=== PATIENT | male | born 1995 | race Caucasian/White ===

== ENCOUNTER 2016-04-08 22:57 | Emergency (ER) | payer SELFPAY ==
[~2016-04-08 22:57] MED LIST: FLUO20CA38; METH36TA6
== END 2016-04-08 23:21 | disposition left against medical advice (07) ==
LOC: E/R 22:57
DX: Z53.21 Procedure and treatment not carried out due to patient leaving prior to being seen by health care provider (principal)

== ENCOUNTER 2016-05-04 22:18 | Inpatient (IN) | payer OTHER ==
[~2016-05-04] VITALS: Ht 170.2 cm; Wt 84.6 kg
[2016-05-04] MEDS ORDERED: SOD CHLORIDE 0.9% 1,000 ML IV STA (22:21)
[2016-05-04] MEDS ORDERED: SUCCINYLCHOLINE CHLORIDE 100 MG/5 ML SYG IV STA (22:21)
[2016-05-04] MEDS ORDERED: PROPOFOL 100 ML IV STA (22:21)
[2016-05-04] MEDS ORDERED: ETOMIDATE 20 MG INJ IV ONE ×2 (22:30→23:00)
[2016-05-04 22:35] VITALS: Ht 170.2 cm; Wt 84.6 kg
[2016-05-04] MEDS ORDERED: OLAN15TA3 PO (22:50)
[2016-05-04 23:17] LABS: ADD SCAN DIFF NO
--- NOTE | 2016-05-04 23:19 | RADRPT ---
PROCEDURE: XR Chest. CLINICAL INDICATION: The patient is status post intubation. TECHNIQUE: Single frontal view of the chest was obtained COMPARISON: None FINDINGS: Endotracheal intubation is seen with tip about 4 cm above the orquidea. The heart and mediastinum are within normal limits. Mild left lung base atelectasis versus airspace disease. There is no pleural effusion or pneumothorax. IMPRESSION: 1. Endotracheal intubation is seen with tip about 4 cm above the orquidea. 2. Mild left lung base atelectasis versus airspace disease. RPTAT: [facility] Physician Trudy Date Time Electronically viewed and signed by Physician Trudy on 05/04/2016 23:19 RS/
[2016-05-04 23:20] LABS: BASOPHILS % 0.4 % (0.0-2.0); EOSINOPHILS % 0.1 % (0.0-7.0); HEMATOCRIT 45.4 % (42.0-52.0); HEMOGLOBIN 15.8 g/dl (14.0-18.0); LYMPHOCYTES # 2.8 10^3/ul (0.8-2.9); MEAN CORPUSCULAR HEMOGLOBIN 30.6 pg (29.0-33.0); MEAN CORPUSCULAR HGB CONC 34.8 g/dl (32.0-37.0); MEAN CORPUSCULAR VOLUME 87.8 fl (82.0-101.0); MEAN PLATELET VOLUME 11.5 fl (7.4-10.4); MONOCYTE # 0.8 10^3/ul (0.3-0.9); NEUTROPHIL # 6.4 10^3/ul (1.6-7.5); PLATELET COUNT 307 10^3/UL (140-415); RED BLOOD COUNT 5.17 10^6/ul (4.70-6.10); RED CELL DISTRIBUTION WIDTH 12.9 % (11.5-14.5); WHITE BLOOD COUNT 10.1 10^3/ul (4.8-10.8)
[2016-05-04 23:28] LABS: ALBUMIN 4.4 g/dl (3.3-4.9)
[2016-05-04 23:29] LABS: CHLORIDE 106 mmol/L (97-110); POTASSIUM 3.6 mmol/L (3.5-5.1); SODIUM 144 mmol/L (135-144)
[2016-05-04 23:31] LABS: ALBUMIN/GLOBULIN RATIO 1.41; ALKALINE PHOSPHATASE 90 IU/L (42-121); ANION GAP 21 (8-16); ASPARTATE AMINO TRANSFERASE 38 IU/L (15-46); BILIRUBIN,INDIRECT 0.2 mg/dl (0-1.1); BILIRUBIN,TOTAL 0.2 mg/dl (0.2-1.3); BLOOD UREA NITROGEN 12 mg/dl (7-20); CARBON DIOXIDE 21 mmol/L (21-31); CREATININE 1.32 mg/dl (0.61-1.24); TOTAL PROTEIN 7.5 g/dl (6.1-8.1)
[2016-05-04] MEDS: MIDAZOLAM (DRIP) 50 mg/50 mL 50 ML IV SCH (23:31)
[2016-05-04 23:32] LABS: ALANINE AMINOTRANSFERASE 34 IU/L (13-69); CALCIUM 9.9 mg/dl (8.4-10.2); GLUCOSE 110 mg/dl (70-220)
[2016-05-04 23:34] LABS: ACETAMINOPHEN < 10.0 ug/ml (10.0-30.0); ETHANOL < 10.0 mg/dl; SALICYLATE < 1.0 mg/dl (5.0-30.0)
[2016-05-04 23:47] LABS: URINE BILIRUBIN (Dip) NEGATIVE (NEGATIVE); URINE BLOOD (Dip) NEGATIVE (NEGATIVE); URINE COLOR YELLOW (YELLOW); URINE GLUCOSE (Dip) NEGATIVE (NEGATIVE); URINE KETONES (Dip) TRACE (NEGATIVE); URINE LEUKOCYTE ESTERASE (Dip) NEGATIVE (NEGATIVE); URINE NITRITE (Dip) NEGATIVE (NEGATIVE); URINE UROBILINOGEN (Dip) 0.2 E.U./dL (0.1-1.0)
[2016-05-04 23:59] LABS: ADD UMIC NO; URINE TOTAL PROTEIN (Dip) NEGATIVE (NEGATIVE)
[2016-05-05] VITALS (73 sets, daily range): BP systolic 92–161; BP diastolic 47–84; PULSE 53–257; RESP 15–22; TEMP 98.7
[2016-05-05 00:04] LABS: BENZODIAZEPINES Positive (NEGATIVE)
[2016-05-05 00:10] LABS: BARBITURATES Negative (NEGATIVE); CANNABINOIDS Positive (NEGATIVE); COCAINE Positive (NEGATIVE); OPIATES Negative (NEGATIVE)
[2016-05-05] MEDS ORDERED: HALOPERIDOL 5 MG INJ IV ONE (00:30)
[2016-05-05] MEDS ORDERED: FENTAnyl (DRIP) 1000 mcg/100mL 100 ML IV ONE (01:00)
--- NOTE | 2016-05-05 01:28 | ERA ---
ER Documentation Chief Complaint Date/Time DATE: 05/05/16 TIME: 01:26 Chief Complaint BIBA RA90, agitation,homicidal HPI This is a 20 male brought in by police and rescue 90 for being acutely agitated and homicidal and suicidal. Patient is severely demented. Is not providing relevant history, but according to paramedics the patient was upset because mother left the house. He was given Versed on route with no discernible effect. Given Haldol immediately upon arrival here with no discernible effect. Decision was made to intubate the patient for both patient and staff safety ROS All systems reviewed and are negative except as per history of present illness. Medications Home Meds Reported Medications Olanzapine* (Zyprexa*) 15 Mg Tablet, 15 MG PO DAILY, #30 TAB 05/04/16 Discontinued Reported Medications Fluoxetine Hcl* (Prozac*) 20 Mg Capsule 08/06/09 Methylphenidate Hcl* (Concerta*) 36 Mg/Bottle Tab.osm.24 08/06/09 Allergies Allergies: Coded Allergies: No Known Drug Allergies (Verified Allergy, Mild, 05/04/16) PMhx/Soc History of Surgery: Yes (BEHIND EAR SURGERY???) Anesthesia Reaction: No Hx Neurological Disorder: No Hx Respiratory Disorders: No Hx Cardiac Disorders: No Hx Psychiatric Problems: Yes (DEPRESSION; MOOD DISORDER) Hx Miscellaneous Medical Probl: No Hx Alcohol Use: No Hx Substance Use: No Hx Tobacco Use: No Smoking Status: Never smoker Physical Exam Vitals Vital Signs Date Time Temp Pulse Resp B/P Pulse Ox O2 Delivery O2 Flow Rate FiO2 05/04/16 23:56 98.2 98 19 131/84 100 Mechanical Ventilator 05/04/16 22:35 98.8 122 19 190/123 100 Physical Exam Const: [] Head: Atraumatic Eyes: Normal Conjunctiva ENT: Normal External Ears, Nose and Mouth. Neck: Full range of motion..~ No meningismus. Resp: Clear to auscultation bilaterally Cardio: Regular rate and rhythm, no murmurs Abd: Soft, non tender, non distended. Normal bowel sounds Skin: No petechiae or rashes Back: No midline or flank tenderness Ext: No cyanosis, or edema Neur: Awake and alert Psych: Normal Mood and Affect Result Diagram: 05/04/16 2305 05/04/16 230 Results 24 hrs Laboratory Tests Test 05/04/16 23:04 05/04/16 23:05 Urine Amphetamines Screen Negative Urine Barbiturates Negative Urine Benzodiazepines Screen Positive Urine Bilirubin NEGATIVE Urine Cannabinoids Positive Urine Clarity CLEAR Urine Cocaine Screen Positive Urine Color YELLOW Urine Glucose NEGATIVE% Urine Hemoglobin NEGATIVE Urine Ketones TRACE Urine Leukocyte Esterase NEGATIVE Urine Nitrite NEGATIVE Urine Opiates Screen Negative Urine Specific [place] >=1.030 Urine Total Protein NEGATIVE Urine Urobilinogen 0.2 E.U./dL Urine pH 6.0 Acetaminophen Level < 10.0ug/ml Alanine Aminotransferase (ALT/SGPT) 34IU/L Albumin 4.4g/dl Albumin/Globulin Ratio 1.41 Alkaline Phosphatase 90IU/L Anion Gap 21 Aspartate Amino Transf (AST/SGOT) 38IU/L Basophils # 0.010^3/ul Basophils % 0.4% Blood Urea Nitrogen 12mg/dl Calcium Level 9.9mg/dl Carbon Dioxide Level 21mmol/L Chloride Level 106mmol/L Creatinine 1.32mg/dl Direct Bilirubin 0.00mg/dl Eosinophils # 0.010^3/ul Eosinophils % 0.1% Ethyl Alcohol Level < 10.0mg/dl Globulin 3.10g/dl Glucose Level 110mg/dl Hematocrit 45.4% Hemoglobin 15.8g/dl Indirect Bilirubin 0.2mg/dl Lymphocytes # 2.810^3/ul Lymphocytes % 28.0% Mean Corpuscular Hemoglobin 30.6pg Mean Corpuscular Hemoglobin Concent 34.8g/dl Mean Corpuscular Volume 87.8fl Mean Platelet Volume 11.5fl Monocytes # 0.810^3/ul Monocytes % 8.0% Neutrophils # 6.410^3/ul Neutrophils % 63.0% Nucleated Red Blood Cells # 0.010^3/ul Nucleated Red Blood Cells % 0.0/100WBC Platelet Count 58252^3/UL Potassium Level 3.6mmol/L Red Blood Count 5.1710^6/ul Red Cell Distribution Width 12.9% Salicylates Level < 1.0mg/dl Sodium Level 144mmol/L Total Bilirubin 0.2mg/dl Total Protein 7.5g/dl White Blood Count 10.110^3/ul Current Medications Medications (Trade) Dose Ordered Sig/Licha Route PRN Reason Start Time Stop Time Status Last Admin Dose Admin Etomidate 20 mg 20 mg ONCE ONCE IV 05/04/16 22:30 05/04/16 22:31 DC Sodium Chloride (NS) 1,000 ml @ 1,000 mls/hr Q1H STAT IV 05/04/16 22:21 05/04/16 23:20 DC 05/04/16 23:09 Succinylcholine Chloride 100 mg 100 mg ONCE STAT IV 05/04/16 22:21 05/04/16 22:24 DC Propofol (Diprivan) 100 ml @ 0 mls/hr ONCE STAT IV 05/04/16 22:21 05/04/16 22:24 DC 05/04/16 23:08 Etomidate 20 mg 20 mg ONCE ONCE IV 05/04/16 23:00 05/04/16 23:01 DC Midazolam HCl (Versed) 50 ml @ 1 mls/hr TITRATE IV 05/04/16 23:30 05/04/16 23:31 Haloperidol 5 mg 5 mg ONCE ONCE IV 05/05/16 00:30 05/05/16 00:31 DC 05/05/16 00:13 Fentanyl (Sublimaze) 100 ml @ 2.5 mls/hr TITRATE ONCE IV 05/05/16 01:00 05/06/16 16:59 Procedures/MDM EKG: Rate/Rhythm: [Normal Sinus Rhythm] QRS, ST, T-waves: [No changes consistent w/ acute ischemia] Impression: [No evidence of ischemia or arrhythmia] Chest X-ray 1V Interpreted by me: Soft Tissue: No acute abnormalities Bones: No acute abnormalities Mediastinum/Cardiac Silhouette/Lungs: ET tube in good position Medical decision-makin-year-old schizophrenic male who has polysubstance abuse as well with combative behavior and threatening behavior toward staff. Patient is currently intubated and sedated. He has been difficult for sedation as he is on both propofol drip and Versed drip. Patient will have fentanyl drip added for triple sedation protocol. Patient will be admitted to Dr. Lopez who is on-call for the patient's IPA Critical Care: Time: 45 minutes Treatments/Evaluations: Close monitoring and treatment of unstable vital signs, cardiorespiratory, and neurologic status, while maintaining tight balance of fluid, respiratory, and cardiac interventions. Departure Diagnosis: Primary Impression: Agitation Additional Impressions: Homicidal ideation Combative behavior Polysubstance abuse Condition: Critical PEMA MOSS May 05, 2016 01:27
--- NOTE | 2016-05-05 01:29 | QN ---
Documentation Comment H&P dict a/p 1. psych: agitation and violent behavior 2. sedation to control behavior 3. ventilator in light #2 4. proph; protonix and lovenox 5. cocaine NAVA CARLOS MD May 05, 2016 01:29
[2016-05-05] MEDS ORDERED: PROPOFOL 100 ML IV ONE (01:30)
[2016-05-05] MEDS ORDERED: VANCOMYCIN IV PER PHARMACY XX SCH (01:30)
[2016-05-05] MEDS ORDERED: MIDAZOLAM (DRIP) 50 mg/50 mL 50 ML IV SCH (01:30)
[2016-05-05] MEDS ORDERED: ACETAMINOPHEN 650MG/20.3ML CUP PO PRN (01:30)
[2016-05-05] MEDS: HALOPERIDOL 5 MG INJ IV SCH ×2 (01:55→13:30)
[2016-05-05] MEDS: MIDAZOLAM (DRIP) 50 mg/50 mL 50 ML IV SCH ×3 (02:52→15:43)
[2016-05-05] MEDS ORDERED: VANCOMYCIN 1 GM in NS 250 ML IVPB SCH (03:00)
[2016-05-05] MEDS: D5W-0.45 NACL + KCL 20 MEQ 1,000 ML IV SCH ×2 (03:00→09:17)
[2016-05-05] MEDS: PIPER-TAZO 3.375 GM IV (PMX) 100 ML IVPB SCH ×3 (03:02→17:39)
[2016-05-05 03:21] LABS: AADO2 Arterial 254.8 mmHg (7.0-24.0); Allen Test ACCEPTAB; Arterial Base Excess -2.4 mmol/L (-3.0-3); Arterial COHb 0.2 % (0.0-3.0); Arterial Fraction of Oxyhgb 98.5 % (93.0-99.0); Arterial HCO3 20.9 mmol/L (22.0-26.0); Arterial MetHb 0.6 % (0.0-1.5); Arterial Total Hemglobin 15.1 g/dl (12.0-18.0); MODE VENT - AC
[2016-05-05] MEDS ORDERED: ALBUTEROL/IPRATROPIUM (NEB) 3 ML AMP NEB SCH (05:00)
[2016-05-05] MEDS: ALBUTEROL HFA 8 GM INHALER INH SCH ×5 (05:00→21:14)
[2016-05-05] MEDS: IPRATROPIUM (HFA) 12.9 GM INHALER INH SCH ×5 (05:00→21:14)
[2016-05-05] MEDS: PANTOPRAZOLE 40 MG INJ IV SCH (05:48)
[2016-05-05] MEDS: PROPOFOL 100 ML IV SCH ×4 (06:03→21:58)
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
[2016-05-05] MEDS ORDERED: FENTAnyl (DRIP) 1000 mcg/100mL 100 ML IV SCH (09:00)
--- NOTE | 2016-05-05 09:43 | CONS ---
Date/Time of Note Date/Time of Note DATE: 05/05/16 TIME: 09:38 Assessment/Plan Assessment/Plan Additional Assessment/Plan Ventilator settings; AC of 16, tidal volume 500, PEEP of 5, 40% FiO2. Chest x-ray was reviewed from yesterday which is totally clear. Next Assessment recommendations; 1. Patient admitted for multidrug overdose causing respiratory failure. 2. History of depression. 3. Currently no evidence of any infective process. Continue current supportive care. Give the patient a sedation vacation tomorrow morning to assess mental status as that would determine whether he is able to be weaned off from ventilator or not. Consultation Date/Type/Reason Admit Date/Time May 05, 2016 at 01:27 Date of Consultation: May 05, 2016 Type of Consultation: Pulmonary/critical care Hx of Present Illness Pulmonary critical care consultation is requested for respiratory failure. Next History presenting; patient is a 20-year-old male who was brought into the hospital yesterday after he was found agitated on the street. Upon evaluation patient was discovered to have multidrug overdose and he was intubated for airway protection and transferred to ICU. By the time I saw the patient the patient is orally intubated and sedated. History was obtained from medical records. Past medical history; is evidently for depression. No other history available apparently none. Next Medications; reviewed. Allergies; no known drug allergies reported. Social history; based upon drug screening patient is a drug user. Family history; not available. Occupational history; not available. Review of systems; unable to be obtained at this time. General exam; young male, or intubated, sedated. Currently in no distress. HEENT exam is; supple neck, no JVD. No lymphadenopathy. Midline trachea. No thyromegaly. Patient is orally intubated. Pupils are small bilaterally. No neck masses. No thyromegaly. Chest examination; clear to auscultation bilaterally. S1-S2 audible, no murmurs. Regular rhythm. Abdomen examination; soft, nondistended. No organomegaly. Bowel is audible. Extremity examination; no peripheral edema. +1+ bilaterally. COPY DIRECTOR examination; patient is sedated. Social History Smoking Status: Never smoker Exam/Review of Systems Vital Signs Vitals Vital Signs Date Time Temp Pulse Resp B/P Pulse Ox O2 Delivery O2 Flow Rate FiO2 05/05/16 08:00 67 05/05/16 06:30 16 124/67 100 05/05/16 06:00 Mechanical Ventilator 05/05/16 05:25 40 05/05/16 04:00 98.5 Intake and Output 05/04/16 05/04/16 05/05/16 15:00 23:00 07:00 Intake Total 1612 ml Output Total 140 ml Balance 1472 ml Results Result Diagram: 05/04/16 2305 05/04/16 2305 Results 24 hrs Laboratory Tests Test 05/04/16 22:21 05/04/16 23:04 05/04/16 23:05 Arterial Blood HCO3 20.9 L Arterial Blood Base Excess -2.4 Arterial Blood Oxygen Saturation 99.3 H Colton Test ACCEPTAB Arterial Blood Gas Puncture Site Right Radial Arterial Blood Carboxyhemoglobin 0.2 Arterial Blood Date Drawn 05/05/2016 3:10:53 AM Arterial Blood Methemoglobin 0.6 Arterial Blood pCO2 (Temp correct) 32.0 L Arterial Blood pH (Temp corrected) 7.432 Arterial Blood pO2 (Temp corrected) 426.2 H Blood Gas A-a O2 Differential 254.8 H Blood Gas Actual Respiration Rate 16 Blood Gas Inspiratory Pressure 19.0 Blood Gas Modality VENT - AC Blood Gas Notified Time 05/05/2016 3:21:44 AM Blood Gas Notified Whom KM Blood Gas Respiration Rate 16.0 Blood Gas Specimen Source Blood arterial Blood Gas Temperature 37.0 Blood Gas Tidal Volume 500.0 FiO2 100.0 Oxyhemoglobin Percent 98.5 Total Hemoglobin 15.1 Urine Amphetamines Screen Negative Urine Barbiturates Negative Urine Benzodiazepines Screen Positive Urine Bilirubin NEGATIVE Urine Cannabinoids Positive Urine Clarity CLEAR Urine Cocaine Screen Positive Urine Color YELLOW Urine Glucose NEGATIVE Urine Hemoglobin NEGATIVE Urine Ketones TRACE Urine Leukocyte Esterase NEGATIVE Urine Nitrite NEGATIVE Urine Opiates Screen Negative Urine Specific [place] >=1.030 H Urine Total Protein NEGATIVE Urine Urobilinogen 0.2 E.U./dL Urine pH 6.0 Acetaminophen Level < 10.0 L Alanine Aminotransferase (ALT/SGPT) 34 Albumin 4.4 Albumin/Globulin Ratio 1.41 Alkaline Phosphatase 90 Anion Gap 21 H Aspartate Amino Transf (AST/SGOT) 38 Basophils # 0.0 Basophils % 0.4 Blood Urea Nitrogen 12 Calcium Level 9.9 Carbon Dioxide Level 21 Chloride Level 106 Creatinine 1.32 H Direct Bilirubin 0.00 Eosinophils # 0.0 Eosinophils % 0.1 Ethyl Alcohol Level < 10.0 Globulin 3.10 Glucose Level 110 Hematocrit 45.4 Hemoglobin 15.8 Indirect Bilirubin 0.2 Lymphocytes # 2.8 Lymphocytes % 28.0 Mean Corpuscular Hemoglobin 30.6 Mean Corpuscular Hemoglobin Concent 34.8 Mean Corpuscular Volume 87.8 Mean Platelet Volume 11.5 H Monocytes # 0.8 Monocytes % 8.0 Neutrophils # 6.4 Neutrophils % 63.0 Nucleated Red Blood Cells # 0.0 Nucleated Red Blood Cells % 0.0 Platelet Count 307 Potassium Level 3.6 Red Blood Count 5.17 Red Cell Distribution Width 12.9 Salicylates Level < 1.0 L Sodium Level 144 Total Bilirubin 0.2 Total Protein 7.5 Troponin I < 0.012 White Blood Count 10.1 Medications Medications Current Medications Midazolam HCl 50 ml @ 1 mls/hr TITRATE IV Last administered on 05/05/16 08:22 ; Admin Dose 10 MLS/HR; Start 05/04/16 at 23:30 Fentanyl 100 ml @ 2.5 mls/hr TITRATE ONCE IV Last administered on 05/05/16 01:25; Admin Dose 2.5 MLS/HR; Start 05/05/16 at 01:00; Stop 05/06/16 at 16:59 Potassium Chloride/Dextrose/ Sod Cl (D5-1/2ns + KCl 20 Meq) 1,000 ml @ 125 mls/ hr Q8H IV Last administered on 05/05/16 03:00; Admin Dose 125 MLS/HR; Start at 01:17 Ondansetron HCl (Zofran Inj) 4 mg Q6H PRN IV NAUSEA AND/OR VOMITING; Start at 01:30 Acetaminophen (Tylenol Liquid) 650 mg Q6H PRN PO PAIN LEVEL 1-3 OR FEVER; Start 05/05/16 at 01:30 Pantoprazole (Protonix Iv) 40 mg DAILY@06 IV Last administered on 05/05/16 05: 48; Admin Dose 40 MG; Start 05/05/16 at 06:00 Enoxaparin Sodium (Lovenox) 40 mg DAILY SC ; Start 05/05/16 at 09:00 Haloperidol 5 mg 5 mg Q12H IV Last administered on 05/05/16 01:55; Admin Dose 5 MG; Start 05/05/16 at 01:30 Midazolam HCl 50 ml @ 1 mls/hr TITRATE IV ; Start 05/05/16 at 01:30 Piperacillin Sod/ Tazobactam Sod 100 ml @ 200 mls/hr Q8H IVPB Last administered on 05/05/16 03:02; Admin Dose 200 MLS/HR; Start 05/05/16 at 01:30 Vancomycin HCl 250 ml @ 125 mls/hr Q12H IVPB Last administered on 05/05/16 03 :53; Admin Dose 125 MLS/HR; Start 05/05/16 at 03:00 Propofol 100 ml @ 2.379 mls/ hr Q12H IV Last administered on 05/05/16 08:29; Admin Dose 47.58 MLS/HR; Start 05/05/16 at 06:00 Fentanyl (Sublimaze) 100 ml @ 2.5 mls/hr TITRATE IV Last administered on 08:51; Admin Dose 10 MLS/HR; Start 05/05/16 at 09:00 ROBBY OCONNOR May 05, 2016 09:43
--- NOTE | 2016-05-05 10:04 | PN ---
Date/Time of Note Date/Time of Note DATE: 05/05/16 TIME: 09:47 Assessment/Plan VTE Prophylaxis VTE Prophylaxis Intervention: LMWH Lines/Catheters IV Catheter Type (from Nrsg): Peripheral IV Urinary Cath still in place: Yes Reason Cath still needed: other (indicate) (intubated ) Assessment/Plan Assessment/Plan 20 yo male with: 1. Delirium, Agitation with possibly underlying Schizophrenia or some Psychotic disorder, non-compliance with antipsychotic medications and also Cocaine use Intubated and sedated on Fentanyl, Versed and Propofol Wean off fentanyl first then propofol and versed PET team/telepsych consult once awake customer services coordinator consult 2. Acute respiratory failure and intubated for airway protection also. Concerns for aspiration PNA as patient was vomiting during intubation Continue Jeramy d/c Chencho for now CXR in AM Prophylaxis: Protonix for GI ppx and Lovenox for DVT ppx. Disposition: Weaning down sedation and hopefully to extubate soon Subjective 24 Hr Interval Summary Free Text/Dictation Patient intubated and sedated Hemodynamically stable and stable on Vent Exam/Review of Systems Vital Signs Vitals Vital Signs Date Time Temp Pulse Resp B/P Pulse Ox O2 Delivery O2 Flow Rate FiO2 05/05/16 08:00 67 05/05/16 06:30 16 124/67 100 05/05/16 06:00 Mechanical Ventilator 05/05/16 05:25 40 05/05/16 04:00 98.5 Intake and Output 05/04/16 05/04/16 05/05/16 14:59 22:59 06:59 Intake Total 1612 ml Output Total 140 ml Balance 1472 ml Exam Constitutional: other (sedated and intubated ), well developed Respiratory: clear to auscultation, normal air movement Cardiovascular: nl pulses, regular rate and rhythm Gastrointestinal: non-tender, soft Musculoskeletal: nl extremities to inspection Extremities: normal pulses, other (no edema, clubbing or cyanosis ) Neurological: other (sedated and intubated ) Results Result Diagram: 05/04/16 2305 05/04/16 2305 Results 24 hrs Laboratory Tests Test 05/04/16 22:21 05/04/16 23:04 05/04/16 23:05 Arterial Blood HCO3 20.9 L Arterial Blood Base Excess -2.4 Arterial Blood Oxygen Saturation 99.3 H Colton Test ACCEPTAB Arterial Blood Gas Puncture Site Right Radial Arterial Blood Carboxyhemoglobin 0.2 Arterial Blood Date Drawn 05/05/2016 3:10:53 AM Arterial Blood Methemoglobin 0.6 Arterial Blood pCO2 (Temp correct) 32.0 L Arterial Blood pH (Temp corrected) 7.432 Arterial Blood pO2 (Temp corrected) 426.2 H Blood Gas A-a O2 Differential 254.8 H Blood Gas Actual Respiration Rate 16 Blood Gas Inspiratory Pressure 19.0 Blood Gas Modality VENT - AC Blood Gas Notified Time 05/05/2016 3:21:44 AM Blood Gas Notified Whom KM Blood Gas Respiration Rate 16.0 Blood Gas Specimen Source Blood arterial Blood Gas Temperature 37.0 Blood Gas Tidal Volume 500.0 FiO2 100.0 Oxyhemoglobin Percent 98.5 Total Hemoglobin 15.1 Urine Amphetamines Screen Negative Urine Barbiturates Negative Urine Benzodiazepines Screen Positive Urine Bilirubin NEGATIVE Urine Cannabinoids Positive Urine Clarity CLEAR Urine Cocaine Screen Positive Urine Color YELLOW Urine Glucose NEGATIVE Urine Hemoglobin NEGATIVE Urine Ketones TRACE Urine Leukocyte Esterase NEGATIVE Urine Nitrite NEGATIVE Urine Opiates Screen Negative Urine Specific [place] >=1.030 H Urine Total Protein NEGATIVE Urine Urobilinogen 0.2 E.U./dL Urine pH 6.0 Acetaminophen Level < 10.0 L Alanine Aminotransferase (ALT/SGPT) 34 Albumin 4.4 Albumin/Globulin Ratio 1.41 Alkaline Phosphatase 90 Anion Gap 21 H Aspartate Amino Transf (AST/SGOT) 38 Basophils # 0.0 Basophils % 0.4 Blood Urea Nitrogen 12 Calcium Level 9.9 Carbon Dioxide Level 21 Chloride Level 106 Creatinine 1.32 H Direct Bilirubin 0.00 Eosinophils # 0.0 Eosinophils % 0.1 Ethyl Alcohol Level < 10.0 Globulin 3.10 Glucose Level 110 Hematocrit 45.4 Hemoglobin 15.8 Indirect Bilirubin 0.2 Lymphocytes # 2.8 Lymphocytes % 28.0 Mean Corpuscular Hemoglobin 30.6 Mean Corpuscular Hemoglobin Concent 34.8 Mean Corpuscular Volume 87.8 Mean Platelet Volume 11.5 H Monocytes # 0.8 Monocytes % 8.0 Neutrophils # 6.4 Neutrophils % 63.0 Nucleated Red Blood Cells # 0.0 Nucleated Red Blood Cells % 0.0 Platelet Count 307 Potassium Level 3.6 Red Blood Count 5.17 Red Cell Distribution Width 12.9 Salicylates Level < 1.0 L Sodium Level 144 Total Bilirubin 0.2 Total Protein 7.5 Troponin I < 0.012 White Blood Count 10.1 Medications Medications Current Medications Midazolam HCl 50 ml @ 1 mls/hr TITRATE IV Last administered on 05/05/16 08:22 ; Admin Dose 10 MLS/HR; Start 05/04/16 at 23:30 Fentanyl 100 ml @ 2.5 mls/hr TITRATE ONCE IV Last administered on 05/05/16 01:25; Admin Dose 2.5 MLS/HR; Start 05/05/16 at 01:00; Stop 05/06/16 at 16:59 Potassium Chloride/Dextrose/ Sod Cl (D5-1/2ns + KCl 20 Meq) 1,000 ml @ 125 mls/ hr Q8H IV Last administered on 05/05/16 03:00; Admin Dose 125 MLS/HR; Start at 01:17 Ondansetron HCl (Zofran Inj) 4 mg Q6H PRN IV NAUSEA AND/OR VOMITING; Start at 01:30 Acetaminophen (Tylenol Liquid) 650 mg Q6H PRN PO PAIN LEVEL 1-3 OR FEVER; Start 05/05/16 at 01:30 Pantoprazole (Protonix Iv) 40 mg DAILY@06 IV Last administered on 05/05/16 05: 48; Admin Dose 40 MG; Start 05/05/16 at 06:00 Enoxaparin Sodium (Lovenox) 40 mg DAILY SC ; Start 05/05/16 at 09:00 Haloperidol 5 mg 5 mg Q12H IV Last administered on 05/05/16 01:55; Admin Dose 5 MG; Start 05/05/16 at 01:30 Midazolam HCl 50 ml @ 1 mls/hr TITRATE IV ; Start 05/05/16 at 01:30 Piperacillin Sod/ Tazobactam Sod 100 ml @ 200 mls/hr Q8H IVPB Last administered on 05/05/16 03:02; Admin Dose 200 MLS/HR; Start 05/05/16 at 01:30 Vancomycin HCl 250 ml @ 125 mls/hr Q12H IVPB Last administered on 05/05/16 03 :53; Admin Dose 125 MLS/HR; Start 05/05/16 at 03:00 Propofol 100 ml @ 2.379 mls/ hr Q12H IV Last administered on 05/05/16 08:29; Admin Dose 47.58 MLS/HR; Start 05/05/16 at 06:00 Fentanyl (Sublimaze) 100 ml @ 2.5 mls/hr TITRATE IV Last administered on 08:51; Admin Dose 10 MLS/HR; Start 05/05/16 at 09:00 TEJ SEQUEIRA May 05, 2016 09:57
[2016-05-05] MEDS: ENOXAPARIN 40 MG/0.4 ML SYG SC SCH (10:27)
[2016-05-05 15:14] LABS: POTASSIUM 3.7 mmol/L (3.5-5.1)
[2016-05-05 15:17] LABS: CREATININE 1.21 mg/dl (0.61-1.24)
[2016-05-05 15:18] LABS: CALCIUM 9.2 mg/dl (8.4-10.2)
[2016-05-05] MEDS: POTASSIUM CHLORIDE 20 MEQ in DEXTROSE 5%-0.9% NACL 1,000 ML IV SCH ×2 (15:42→23:56)
--- NOTE | 2016-05-05 17:00 | RADRPT ---
PROCEDURE: CT Head without. CLINICAL INDICATION: Headache, suspected intracranial hemorrhage. TECHNIQUE: The study was performed utilizing a multi-slice, multidetector CT scanner. Direct spira l 1 mm axial sections were obtained through the head without the use of intravenous contrast materia l. 1 or more of the following dose reduction techniques were utilized: Automated exposure control, adjustment of the mA and/or kV according to patient's size, iterative reconstruction technique. Co brian and sagittal reformations were obtained. The images were reviewed on a PACS workstation. RADIATION DOSE: CTDIvol: 44.3 mGyDLP: 720.2 mGy-cm COMPARISON: No prior studies are available for comparison. FINDINGS: There is no intracranial hemorrhage, extra-axial fluid collection, mass lesion, midline shift or hyd rocephalus. The ventricles, sulci and cisterns are within normal limits. The white matter is unrem arkable. The bowen-white matter differentiation is preserved. The basal cisterns are patent. The m idline structures are intact. The orbits, calvarium and extracranial soft tissues are normal in radha earance. There are mild inflammatory changes of the bilateral ethmoid air cells. There is pneumatiz ation bilateral petrous apices without evidence of inflammatory changes, normal variant. The mastoi d air cells and middle ear cavities are normally aerated. IMPRESSION: 1. No acute intracranial abnormality. No intracranial hemorrhage, extra-axial fluid collection, ma ss lesion or hydrocephalous. RPTAT: DD .Shawn Tripp MD, MD Date Time Electronically viewed and signed by .Shawn Tripp MD, on 05/05/2016 17:00 .S/
[2016-05-06] VITALS (38 sets, daily range): BP systolic 98–136; BP diastolic 53–93; PULSE 60–98; RESP 13–24
[2016-05-06] MEDS: ALBUTEROL HFA 8 GM INHALER INH SCH ×6 (01:26→20:30)
[2016-05-06] MEDS: IPRATROPIUM (HFA) 12.9 GM INHALER INH SCH ×6 (01:26→20:30)
[2016-05-06] MEDS: HALOPERIDOL 5 MG INJ IV SCH ×2 (01:30→13:27)
[2016-05-06] MEDS: PROPOFOL 100 ML IV SCH ×5 (01:48→22:12)
[2016-05-06] MEDS: MIDAZOLAM (DRIP) 50 mg/50 mL 50 ML IV SCH ×2 (01:50→10:56)
[2016-05-06] MEDS: PIPER-TAZO 3.375 GM IV (PMX) 100 ML IVPB SCH ×3 (01:51→17:02)
[2016-05-06 06:04] LABS: ADD SCAN DIFF NO
[2016-05-06] MEDS: PANTOPRAZOLE 40 MG INJ IV SCH (06:13)
[2016-05-06 06:14] LABS: BASOPHILS % 0.5 % (0.0-2.0); EOSINOPHILS % 0.2 % (0.0-7.0); HEMATOCRIT 39.5 % (42.0-52.0); HEMOGLOBIN 13.1 g/dl (14.0-18.0); LYMPHOCYTES # 1.8 10^3/ul (0.8-2.9); LYMPHOCYTES % 28.8 % (15.0-51.0); MEAN CORPUSCULAR HEMOGLOBIN 29.8 pg (29.0-33.0); MEAN CORPUSCULAR HGB CONC 33.2 g/dl (32.0-37.0); MEAN CORPUSCULAR VOLUME 89.8 fl (82.0-101.0); MEAN PLATELET VOLUME 11.5 fl (7.4-10.4); MONOCYTE # 0.8 10^3/ul (0.3-0.9); MONOCYTES % 13.1 % (0.0-11.0); NEUTROPHIL # 3.6 10^3/ul (1.6-7.5); NEUTROPHILS % 57.1 % (39.0-77.0); PLATELET COUNT 228 10^3/UL (140-415); RED CELL DISTRIBUTION WIDTH 13.7 % (11.5-14.5); WHITE BLOOD COUNT 6.4 10^3/ul (4.8-10.8)
[2016-05-06 06:23] LABS: POTASSIUM 3.7 mmol/L (3.5-5.1)
[2016-05-06 06:26] LABS: CREATININE 1.01 mg/dl (0.61-1.24)
[2016-05-06 06:27] LABS: CALCIUM 8.3 mg/dl (8.4-10.2)
[2016-05-06] MEDS: POTASSIUM CHLORIDE 20 MEQ in DEXTROSE 5%-0.9% NACL 1,000 ML IV SCH (07:38)
[2016-05-06] MEDS: ENOXAPARIN 40 MG/0.4 ML SYG SC SCH (08:14)
--- NOTE | 2016-05-06 09:39 | PN ---
Date/Time of Note Date/Time of Note DATE: 05/06/16 TIME: 09:19 Assessment/Plan VTE Prophylaxis VTE Prophylaxis Intervention: LMWH Lines/Catheters IV Catheter Type (from Nrsg): Peripheral IV Urinary Cath still in place: Yes Reason Cath still needed: other (indicate) (on Vent ) Assessment/Plan Assessment/Plan 20 yo male with: 1. Delirium, Agitation with possibly underlying Schizophrenia or some Psychotic disorder, non-compliance with antipsychotic medications and also Cocaine use Intubated and sedated on Versed and Propofol, OFF fentanyl PET team/telepsych consult once awake environmental services floor tech consult as patient followed at [facility] clinic 2. Acute respiratory failure and intubated for airway protection also. Concerns for aspiration PNA as patient was vomiting during intubation Continue Jeramy d/c Chencho for now Follow up CXR in AM 3. Withdrawal reported so patient on Versed gtt primarily, monitor 4. R/o Rhabdomyolysis, check CK and adjust IVF accordingly. Prophylaxis: Protonix for GI ppx and Lovenox for DVT ppx. Disposition: Weaning down sedation and hopefully to extubate soon if stable Subjective 24 Hr Interval Summary Free Text/Dictation Patient on Versed and Propofol for sedation CT head negative Agitated and combative on minimal sedation Exam/Review of Systems Vital Signs Vitals Vital Signs Date Time Temp Pulse Resp B/P Pulse Ox O2 Delivery O2 Flow Rate FiO2 05/06/16 08:00 76 05/06/16 07:22 16 100 30 05/06/16 07:00 123/72 Mechanical Ventilator 05/06/16 04:00 97.8 Intake and Output 05/05/16 05/05/16 05/06/16 15:00 23:00 07:00 Intake Total 1083.024 ml 1220.644 ml 1225.644 ml Output Total 1400 ml 320 ml Balance 1083.024 ml -179.356 ml 905.644 ml Exam Constitutional: other (sedated and intubated ), well developed Respiratory: clear to auscultation, other (on Vent ) Cardiovascular: nl pulses, regular rate and rhythm Gastrointestinal: non-tender, soft Musculoskeletal: nl extremities to inspection Extremities: normal pulses, other (no edema, clubbing or cyanosis ) Neurological: other (sedated and intubated ) Results Result Diagram: 05/06/16 0545 05/06/16 0545 Results 24 hrs Laboratory Tests Test 3/21/17 09:46 05/05/16 13:40 05/06/16 05:45 Troponin I < 0.012 < 0.012 Anion Gap 17 H 15 Blood Urea Nitrogen 10 7 Calcium Level 9.2 8.3 L Carbon Dioxide Level 24 23 Chloride Level 111 H 114 H Creatinine 1.21 1.01 Glucose Level 91 86 Potassium Level 3.7 3.7 Sodium Level 148 H 148 H Basophils # 0.0 Basophils % 0.5 Eosinophils # 0.0 Eosinophils % 0.2 Hematocrit 39.5 L Hemoglobin 13.1 L Lymphocytes # 1.8 Lymphocytes % 28.8 Magnesium Level 2.0 Mean Corpuscular Hemoglobin 29.8 Mean Corpuscular Hemoglobin Concent 33.2 Mean Corpuscular Volume 89.8 Mean Platelet Volume 11.5 H Monocytes # 0.8 Monocytes % 13.1 H Neutrophils # 3.6 Neutrophils % 57.1 Nucleated Red Blood Cells # 0.0 Nucleated Red Blood Cells % 0.0 Phosphorus Level 3.0 Platelet Count 228 # Red Blood Count 4.40 L Red Cell Distribution Width 13.7 White Blood Count 6.4 # Medications Medications Current Medications Ondansetron HCl (Zofran Inj) 4 mg Q6H PRN IV NAUSEA AND/OR VOMITING; Start at 01:30 Acetaminophen (Tylenol Liquid) 650 mg Q6H PRN PO PAIN LEVEL 1-3 OR FEVER; Start 05/05/16 at 01:30 Pantoprazole (Protonix Iv) 40 mg DAILY@06 IV Last administered on 05/06/16 06: 13; Admin Dose 40 MG; Start 05/05/16 at 06:00 Enoxaparin Sodium (Lovenox) 40 mg DAILY SC Last administered on 05/06/16 08:14 ; Admin Dose 40 MG; Start 05/05/16 at 09:00 Haloperidol 5 mg 5 mg Q12H IV Last administered on 05/05/16 01:55; Admin Dose 5 MG; Start 05/05/16 at 01:30 Piperacillin Sod/ Tazobactam Sod 100 ml @ 200 mls/hr Q8H IVPB Last administered on 05/06/16 09:05; Admin Dose 200 MLS/HR; Start 05/05/16 at 01:30 Propofol 100 ml @ 2.379 mls/ hr Q12H IV Last administered on 05/06/16 07:38; Admin Dose 19.032 MLS/HR; Start 05/05/16 at 06:00 Fentanyl 100 ml @ 2.5 mls/hr TITRATE IV Last administered on 05/05/16 08:51; Admin Dose 10 MLS/HR; Start 05/05/16 at 09:00 Midazolam HCl 50 ml @ 1 mls/hr TITRATE IV Last administered on 05/06/16 01:50 ; Admin Dose 5 MLS/HR; Start 05/05/16 at 11:00 Potassium Chloride/Dextrose/ Sodium Chloride (KCl/D5-NS) 1,010 ml @ 125 mls/hr Q8H5M IV Last administered on 05/06/16 07:38; Admin Dose 125 MLS/HR; Start at 14:30 TEJ SEQUEIRA May 06, 2016 09:33
--- NOTE | 2016-05-06 09:54 | CONS ---
Date/Time of Note Date/Time of Note DATE: 05/06/16 TIME: 09:52 Assessment/Plan Assessment/Plan Chief Complaint/Hosp Course Pulmonary critical care consultation is requested for respiratory failure. Next History presenting; patient is a 20-year-old male who was brought into the hospital yesterday after he was found agitated on the street. Upon evaluation patient was discovered to have multidrug overdose and he was intubated for airway protection and transferred to ICU. By the time I saw the patient the patient is orally intubated and sedated. History was obtained from medical records. Past medical history; is evidently for depression. No other history available apparently none. Next Medications; reviewed. Allergies; no known drug allergies reported. Social history; based upon drug screening patient is a drug user. Family history; not available. Occupational history; not available. Review of systems; unable to be obtained at this time. General exam; young male, or intubated, sedated. Currently in no distress. Problems: Additional Assessment/Plan Ventilator settings; AC of 16, tidal volume 500, PEEP of 0, 30% FiO2. Assessment recommendations; patient admitted for multidrug overdose causing respiratory failure, has remained hemodynamically stable. 2. Currently no evidence of any infective process. 3. At this time patient unable to be weaned from ventilator due to continued agitation off sedation. Next Continue current treatment for now. Consultation Date/Type/Reason Admit Date/Time May 05, 2016 at 13:13 Initial Consult Date 05/05/16 Type of Consultation: Pulmonary/critical care 24 HR Interval Summary Free Text/Dictation Patient condition remains tenuous at best. Still requiring high-dose addition. Patient was given a sedation vacation early this morning, he became extremely agitated and had to be re-sedated. Patient however has remained hemodynamically stable. Abdomen exam; young male, orally intubated, sedated. Currently in no distress. Exam/Review of Systems Vital Signs Vitals Vital Signs Date Time Temp Pulse Resp B/P Pulse Ox O2 Delivery O2 Flow Rate FiO2 05/06/16 09:26 71 16 100 30 05/06/16 07:00 123/72 Mechanical Ventilator 05/06/16 04:00 97.8 Intake and Output 05/05/16 05/05/16 05/06/16 15:00 23:00 07:00 Intake Total 1083.024 ml 1220.644 ml 1225.644 ml Output Total 1400 ml 320 ml Balance 1083.024 ml -179.356 ml 905.644 ml Exam H EENT exam is; supple neck, no JVD. No lymphadenopathy. Midline trachea. No thyromegaly. It was a midsize, reactive to light. No thyromegaly. Patient has fair dentition. Chest exam is; clear to auscultation bilaterally. S1-S2 audible, no murmurs. Regular rhythm. Abdomen examination; soft, no organomegaly. Bowel sounds audible. Extremity exam is; no peripheral edema. Pulses 2+ bilaterally. SPECIAL PROCEDURES TECHNOLOGIST examination : patient is sedated. Results Result Diagram: 05/06/16 0545 05/06/16 0545 Results 24 hrs Laboratory Tests Test 05/05/16 13:40 05/06/16 05:45 Anion Gap 17 H 15 Blood Urea Nitrogen 10 7 Calcium Level 9.2 8.3 L Carbon Dioxide Level 24 23 Chloride Level 111 H 114 H Creatinine 1.21 1.01 Glucose Level 91 86 Potassium Level 3.7 3.7 Sodium Level 148 H 148 H Troponin I < 0.012 Basophils # 0.0 Basophils % 0.5 Eosinophils # 0.0 Eosinophils % 0.2 Hematocrit 39.5 L Hemoglobin 13.1 L Lymphocytes # 1.8 Lymphocytes % 28.8 Magnesium Level 2.0 Mean Corpuscular Hemoglobin 29.8 Mean Corpuscular Hemoglobin Concent 33.2 Mean Corpuscular Volume 89.8 Mean Platelet Volume 11.5 H Monocytes # 0.8 Monocytes % 13.1 H Neutrophils # 3.6 Neutrophils % 57.1 Nucleated Red Blood Cells # 0.0 Nucleated Red Blood Cells % 0.0 Phosphorus Level 3.0 Platelet Count 228 # Red Blood Count 4.40 L Red Cell Distribution Width 13.7 White Blood Count 6.4 # Medications Medications Current Medications Ondansetron HCl (Zofran Inj) 4 mg Q6H PRN IV NAUSEA AND/OR VOMITING; Start at 01:30 Acetaminophen (Tylenol Liquid) 650 mg Q6H PRN PO PAIN LEVEL 1-3 OR FEVER; Start 05/05/16 at 01:30 Pantoprazole (Protonix Iv) 40 mg DAILY@06 IV Last administered on 05/06/16t 06: 13; Admin Dose 40 MG; Start 05/05/16 at 06:00 Enoxaparin Sodium (Lovenox) 40 mg DAILY SC Last administered on 05/06/16 08:14 ; Admin Dose 40 MG; Start 05/05/16 at 09:00 Haloperidol 5 mg 5 mg Q12H IV Last administered on 05/05/16 01:55; Admin Dose 5 MG; Start 05/05/16 at 01:30 Piperacillin Sod/ Tazobactam Sod 100 ml @ 200 mls/hr Q8H IVPB Last administered on 05/06/16 09:05; Admin Dose 200 MLS/HR; Start 05/05/16 at 01:30 Propofol 100 ml @ 2.379 mls/ hr Q12H IV Last administered on 05/06/16 07:38; Admin Dose 19.032 MLS/HR; Start 05/05/16 at 06:00 Fentanyl 100 ml @ 2.5 mls/hr TITRATE IV Last administered on 05/05/16 08:51; Admin Dose 10 MLS/HR; Start 05/05/16 at 09:00 Midazolam HCl 50 ml @ 1 mls/hr TITRATE IV Last administered on 05/06/16 01:50 ; Admin Dose 5 MLS/HR; Start 05/05/16 at 11:00 Potassium Chloride/Dextrose/ Sodium Chloride (KCl/D5-NS) 1,010 ml @ 125 mls/hr Q8H5M IV Last administered on 05/06/16 07:38; Admin Dose 125 MLS/HR; Start at 14:30 ROBBY OCONNOR 22, 2017 09:54
--- NOTE | 2016-05-06 10:11 | RADRPT ---
PROCEDURE: XR Chest. CLINICAL INDICATION: Agitation. TECHNIQUE: AP view of the chest was obtained. COMPARISON: 05/04/2016 FINDINGS: The cardiomediastinal silhouette is within normal limits. The lungs are clear. There is an endotrach eal tube in place 3.3 cm above the orquidea. There is a nasogastric tube in place with tip not visual ized, below the gastroesophageal junction. No signs of pleural fluid or pneumothorax are seen. The o sseous structures and soft tissues are unremarkable. IMPRESSION: 1. No evidence for active cardiopulmonary disease. 2. Lines and tubes in satisfactory position. RPTAT: DD .Shawn Tripp MD, MD Date Time Electronically viewed and signed by .Shawn Tripp MD, on 05/06/2016 10:10 .S/
[2016-05-06] MEDS: D5W-0.45 NACL + KCL 20 MEQ 1,000 ML IV SCH ×3 (12:09→18:52)
[2016-05-07] VITALS (36 sets, daily range): BP systolic 92–133; BP diastolic 46–76; PULSE 60–93; RESP 12–20
[2016-05-07] MEDS: MIDAZOLAM (DRIP) 50 mg/50 mL 50 ML IV SCH ×3 (00:22→18:09)
[2016-05-07] MEDS: D5W-0.45 NACL + KCL 20 MEQ 1,000 ML IV SCH ×4 (01:11→20:52)
[2016-05-07] MEDS: PROPOFOL 100 ML IV SCH ×6 (01:11→23:10)
[2016-05-07] MEDS: HALOPERIDOL 5 MG INJ IV SCH ×2 (01:55→14:18)
[2016-05-07] MEDS: PIPER-TAZO 3.375 GM IV (PMX) 100 ML IVPB SCH ×3 (01:55→17:57)
[2016-05-07] MEDS: IPRATROPIUM (HFA) 12.9 GM INHALER INH SCH ×6 (02:15→20:36)
[2016-05-07] MEDS: ALBUTEROL HFA 8 GM INHALER INH SCH ×6 (02:16→20:36)
[2016-05-07] MEDS: PANTOPRAZOLE 40 MG INJ IV SCH (05:36)
[2016-05-07 06:25] LABS: ADD SCAN DIFF NO
[2016-05-07 06:37] LABS: BASOPHILS % 0.2 % (0.0-2.0); EOSINOPHILS % 0.1 % (0.0-7.0); HEMATOCRIT 37.1 % (42.0-52.0); HEMOGLOBIN 12.4 g/dl (14.0-18.0); LYMPHOCYTES # 1.8 10^3/ul (0.8-2.9); LYMPHOCYTES % 22.5 % (15.0-51.0); MEAN CORPUSCULAR HEMOGLOBIN 29.8 pg (29.0-33.0); MEAN CORPUSCULAR HGB CONC 33.4 g/dl (32.0-37.0); MEAN CORPUSCULAR VOLUME 89.2 fl (82.0-101.0); MEAN PLATELET VOLUME 11.6 fl (7.4-10.4); MONOCYTE # 0.8 10^3/ul (0.3-0.9); MONOCYTES % 9.9 % (0.0-11.0); NEUTROPHIL # 5.4 10^3/ul (1.6-7.5); NEUTROPHILS % 67.1 % (39.0-77.0); PLATELET COUNT 220 10^3/UL (140-415); RED BLOOD COUNT 4.16 10^6/ul (4.70-6.10); RED CELL DISTRIBUTION WIDTH 13.8 % (11.5-14.5); WHITE BLOOD COUNT 8.1 10^3/ul (4.8-10.8)
[2016-05-07 06:45] LABS: ALBUMIN 2.8 g/dl (3.3-4.9); POTASSIUM 3.4 mmol/L (3.5-5.1)
[2016-05-07 06:46] LABS: PHOSPHORUS 4.3 mg/dl (2.5-4.9)
[2016-05-07 06:47] LABS: CREATININE 0.8 mg/dl (0.61-1.24); MAGNESIUM 1.6 mg/dl (1.7-2.5)
[2016-05-07 06:48] LABS: ALBUMIN/GLOBULIN RATIO 1.03; BILIRUBIN,INDIRECT 0.2 mg/dl (0-1.1); BILIRUBIN,TOTAL 0.2 mg/dl (0.2-1.3); TOTAL PROTEIN 5.5 g/dl (6.1-8.1)
[2016-05-07 06:49] LABS: CALCIUM 8.2 mg/dl (8.4-10.2)
[2016-05-07] MEDS: ENOXAPARIN 40 MG/0.4 ML SYG SC SCH (09:45)
--- NOTE | 2016-05-07 09:49 | PN ---
Date/Time of Note Date/Time of Note DATE: 05/07/16 TIME: 09:37 Assessment/Plan VTE Prophylaxis VTE Prophylaxis Intervention: LMWH Lines/Catheters IV Catheter Type (from Nrs): Saline Lock Urinary Cath still in place: Yes Reason Cath still needed: other (indicate) (terminal and bed bound ) Assessment/Plan Assessment/Plan 20 yo male with: 1. Delirium, Agitation with possibly underlying Schizophrenia or some Psychotic disorder, non-compliance with antipsychotic medications and also Cocaine use Intubated and sedated on Versed and Propofol, attempted twice now to get a hold of Mental Health registered nurse hh case manager to get a medication list, still awaiting call back PET team/telepsych consult once extubated technical services librarian consult as patient followed at [facility] clinic 2. Acute respiratory failure and intubated for airway protection also. Concerns for aspiration PNA as patient was vomiting during intubation Continue Zosyn until extubated 3. Withdrawal reported so patient on Versed gtt primarily, monitor 4. Rhabdomyolysis, continue IVF. Much better uop. Monitor CK and replete K and Mag Prophylaxis: Protonix for GI ppx and Lovenox for DVT ppx. Disposition: Weaning down sedation and hopefully to extubate soon if stable, resume psych meds as soon as accurate list available Subjective 24 Hr Interval Summary Free Text/Dictation Patient doing Ok on Vent and intubated Attempted weaning so far, patient too agitated and aggressive when down on sedation I have called [facility] treatment center at [phone], Alexx Helton not available, but I left message for RN to call ICU back with psych meds list STEFANIA. Exam/Review of Systems Vital Signs Vitals Vital Signs Date Time Temp Pulse Resp B/P Pulse Ox O2 Delivery O2 Flow Rate FiO2 05/07/16 09:24 66 16 100 05/07/16 08:00 98.6 92/46 Mechanical Ventilator 05/07/16 05:32 30 Intake and Output 05/06/16 05/06/16 05/07/16 15:00 23:00 07:00 Intake Total 1285.320 ml 1119.622 ml 1353.4 ml Output Total 215 ml 910 ml 545 ml Balance 1070.320 ml 209.622 ml 808.4 ml Exam Constitutional: other (intubated and sedated ) Cardiovascular: nl pulses, regular rate and rhythm Gastrointestinal: non-tender, soft Musculoskeletal: nl extremities to inspection Extremities: normal pulses, other (no edema, clubbing or cyanosis ) Neurological: other (sedated and intubated ) Results Result Diagram: 05/07/1645 05/07/1645 Results 24 hrs Laboratory Tests Test 05/07/16 05:45 White Blood Count 8.1 # Red Blood Count 4.16 L Hemoglobin 12.4 L Hematocrit 37.1 L Mean Corpuscular Volume 89.2 Mean Corpuscular Hemoglobin 29.8 Mean Corpuscular Hemoglobin Concent 33.4 Red Cell Distribution Width 13.8 Platelet Count 220 Mean Platelet Volume 11.6 H Neutrophils % 67.1 Lymphocytes % 22.5 Monocytes % 9.9 Eosinophils % 0.1 Basophils % 0.2 Nucleated Red Blood Cells % 0.0 Neutrophils # 5.4 Lymphocytes # 1.8 Monocytes # 0.8 Eosinophils # 0.0 Basophils # 0.0 Nucleated Red Blood Cells # 0.0 Sodium Level 144 Potassium Level 3.4 L Chloride Level 114 H Carbon Dioxide Level 22 Anion Gap 11 Blood Urea Nitrogen 2 L Creatinine 0.80 Glucose Level 112 Calcium Level 8.2 L Phosphorus Level 4.3 Magnesium Level 1.6 L Total Bilirubin 0.2 Direct Bilirubin 0.00 Indirect Bilirubin 0.2 Aspartate Amino Transf (AST/SGOT) 40 Alanine Aminotransferase (ALT/SGPT) 36 Alkaline Phosphatase 71 Creatine Kinase 963 H Total Protein 5.5 L Albumin 2.8 L Globulin 2.70 Albumin/Globulin Ratio 1.03 Medications Medications Current Medications Ondansetron HCl (Zofran Inj) 4 mg Q6H PRN IV NAUSEA AND/OR VOMITING; Start at 01:30 Acetaminophen (Tylenol Liquid) 650 mg Q6H PRN PO PAIN LEVEL 1-3 OR FEVER; Start 05/05/16 at 01:30 Pantoprazole (Protonix Iv) 40 mg DAILY@06 IV Last administered on 05/07/16 05: 36; Admin Dose 40 MG; Start 05/05/16 at 06:00 Enoxaparin Sodium (Lovenox) 40 mg DAILY SC Last administered on 05/06/16 08:14 ; Admin Dose 40 MG; Start 05/05/16 at 09:00 Haloperidol 5 mg 5 mg Q12H IV Last administered on 05/07/16 01:55; Admin Dose 5 MG; Start 05/05/16 at 01:30 Piperacillin Sod/ Tazobactam Sod 100 ml @ 200 mls/hr Q8H IVPB Last administered on 05/07/16 01:55; Admin Dose 200 MLS/HR; Start 05/05/16 at 01:30 Propofol 100 ml @ 2.379 mls/ hr Q12H IV Last administered on 05/07/16 05:41; Admin Dose 19.032 MLS/HR; Start 05/05/16 at 06:00 Fentanyl 100 ml @ 2.5 mls/hr TITRATE IV Last administered on 05/05/16 08:51; Admin Dose 10 MLS/HR; Start 05/05/16 at 09:00 Midazolam HCl 50 ml @ 1 mls/hr TITRATE IV Last administered on 05/07/16 00:22 ; Admin Dose 40 MLS/HR; Start 05/05/16 at 11:00 Potassium Chloride/Dextrose/ Sod Cl (D5-1/2ns + KCl 20 Meq) 1,000 ml @ 150 mls/ hr Q6H40M IV Last administered on 05/07/16 01:11; Admin Dose 150 MLS/HR; Start 05/06/16 at 11:30 TEJ SEQUEIRA May 07, 2016 09:47
--- NOTE | 2016-05-07 10:08 | CONS ---
Date/Time of Note Date/Time of Note DATE: 05/07/16 TIME: 09:58 Consult Date/Type/Reason Admit Date/Time May 05, 2016 at 13:13 Initial Consult Date 05/05/16 Type of Consultation: Pulmonary/critical care Subjective Patient significant agitation off sedation Continues mechanical ventilation Objective Vital Signs Date Time Temp Pulse Resp B/P Pulse Ox O2 Delivery O2 Flow Rate FiO2 05/07/16 09:24 66 16 100 05/07/16 08:00 98.6 92/46 Mechanical Ventilator 05/07/16 05:32 30 Intake and Output 05/06/16 05/06/16 05/07/16 15:00 23:00 07:00 Intake Total 1285.320 ml 1119.622 ml 1353.4 ml Output Total 215 ml 910 ml 545 ml Balance 1070.320 ml 209.622 ml 808.4 ml Exam PHYSICAL EXAMINATION GENERAL: Well-nourished well-developed gentleman intubated on mechanical ventilation VITAL SIGNS: see below. HEENT: Pupils equal, round, and reactive to light. CARDIAC: S1, S2, tachycardia. CHEST: Diminished air entry bilaterally. ABDOMEN: Mildly distended. Bowel sounds present no guarding or rebound EXTREMITIES: No cyanosis, clubbing or edema. NEUROLOGIC: Unable to assess Results/Medications Result Diagram: 05/07/16 0545 05/07/16 0545 Results 24 hrs Laboratory Tests Test 05/07/16 05:45 White Blood Count 8.1 # Red Blood Count 4.16 L Hemoglobin 12.4 L Hematocrit 37.1 L Mean Corpuscular Volume 89.2 Mean Corpuscular Hemoglobin 29.8 Mean Corpuscular Hemoglobin Concent 33.4 Red Cell Distribution Width 13.8 Platelet Count 220 Mean Platelet Volume 11.6 H Neutrophils % 67.1 Lymphocytes % 22.5 Monocytes % 9.9 Eosinophils % 0.1 Basophils % 0.2 Nucleated Red Blood Cells % 0.0 Neutrophils # 5.4 Lymphocytes # 1.8 Monocytes # 0.8 Eosinophils # 0.0 Basophils # 0.0 Nucleated Red Blood Cells # 0.0 Sodium Level 144 Potassium Level 3.4 L Chloride Level 114 H Carbon Dioxide Level 22 Anion Gap 11 Blood Urea Nitrogen 2 L Creatinine 0.80 Glucose Level 112 Calcium Level 8.2 L Phosphorus Level 4.3 Magnesium Level 1.6 L Total Bilirubin 0.2 Direct Bilirubin 0.00 Indirect Bilirubin 0.2 Aspartate Amino Transf (AST/SGOT) 40 Alanine Aminotransferase (ALT/SGPT) 36 Alkaline Phosphatase 71 Creatine Kinase 963 H Total Protein 5.5 L Albumin 2.8 L Globulin 2.70 Albumin/Globulin Ratio 1.03 Medications Current Medications Ondansetron HCl (Zofran Inj) 4 mg Q6H PRN IV NAUSEA AND/OR VOMITING; Start at 01:30 Acetaminophen (Tylenol Liquid) 650 mg Q6H PRN PO PAIN LEVEL 1-3 OR FEVER; Start 05/05/16 at 01:30 Pantoprazole (Protonix Iv) 40 mg DAILY@06 IV Last administered on 05/07/16 05: 36; Admin Dose 40 MG; Start 05/05/16 at 06:00 Enoxaparin Sodium (Lovenox) 40 mg DAILY SC Last administered on 05/06/16 08:14 ; Admin Dose 40 MG; Start 05/05/16 at 09:00 Haloperidol 5 mg 5 mg Q12H IV Last administered on 05/07/16 01:55; Admin Dose 5 MG; Start 05/05/16 at 01:30 Piperacillin Sod/ Tazobactam Sod 100 ml @ 200 mls/hr Q8H IVPB Last administered on 05/07/16 01:55; Admin Dose 200 MLS/HR; Start 05/05/16 at 01:30 Propofol 100 ml @ 2.379 mls/ hr Q12H IV Last administered on 05/07/16 05:41; Admin Dose 19.032 MLS/HR; Start 05/05/16 at 06:00 Fentanyl 100 ml @ 2.5 mls/hr TITRATE IV Last administered on 05/05/16 08:51; Admin Dose 10 MLS/HR; Start 05/05/16 at 09:00 Midazolam HCl 50 ml @ 1 mls/hr TITRATE IV Last administered on 05/07/16 00:22 ; Admin Dose 40 MLS/HR; Start 05/05/16 at 11:00 Potassium Chloride/Dextrose/ Sod Cl (D5-1/2ns + KCl 20 Meq) 1,000 ml @ 150 mls/ hr Q6H40M IV Last administered on 05/07/16 01:11; Admin Dose 150 MLS/HR; Start 05/06/16 at 11:30 Assessment/Plan Chief Complaint/Hosp Course Assessment 1. Polysubstance abuse 2. History of psychiatric disorder 3. Possible aspiration pneumonia with hypoxemic respiratory failure 3. Dysphagia secondary to above Plan 1. Continue mechanical ventilation 2. Consider psych eval resume psychiatric medications 3. Start tube feeding 4. Continue DVT and GI prophylaxis Problems: NATHALIE JOEL MD, [facility] May 07, 2016 10:08
[2016-05-07] MEDS ORDERED: MAGNESIUM SULFATE 4 GM/100 ML 100 ML IVPB ONE (10:30)
[2016-05-07] MEDS ORDERED: POTASSIUM CHLORIDE 250 ML IVPB ONE (10:30)
[2016-05-07] MEDS ORDERED: OLANZAPINE 5 MG TAB PO ONE (11:30)
--- NOTE | 2016-05-07 14:06 | RADRPT ---
PROCEDURE: XR Abdomen. CLINICAL INDICATION: Check nasogastric tube position. TECHNIQUE: AP supine abdomen x-ray. COMPARISON: Chest x-ray dated 05/06/2016. FINDINGS: There is a nasogastric tube with the tip in the gastric antrum. The bowel gas pattern is normal with no evidence of obstruction. There are no abnormal calcifications overlying the urinary tracts. The osseus structures are unremarkable. IMPRESSION: 1. Nasogastric tube tip in the gastric antrum. 2. Otherwise unremarkable abdomen radiograph. RPTAT: QQ .Carlin Black MD, MD Date Time Electronically viewed and signed by .Carlin Black MD, MD on 05/07/2016 14:06 .R/
[2016-05-08] VITALS (59 sets, daily range): BP systolic 89–176; BP diastolic 44–99; PULSE 59–99; RESP 16–33
[2016-05-08] MEDS: ALBUTEROL HFA 8 GM INHALER INH SCH ×6 (01:50→21:25)
[2016-05-08] MEDS: IPRATROPIUM (HFA) 12.9 GM INHALER INH SCH ×6 (01:50→21:25)
[2016-05-08] MEDS: PIPER-TAZO 3.375 GM IV (PMX) 100 ML IVPB SCH ×2 (02:33→08:56)
[2016-05-08] MEDS: HALOPERIDOL 5 MG INJ IV SCH ×2 (02:34→12:58)
[2016-05-08] MEDS: PROPOFOL 100 ML IV SCH ×5 (02:56→22:44)
[2016-05-08] MEDS: MIDAZOLAM (DRIP) 50 mg/50 mL 50 ML IV SCH ×3 (03:56→21:34)
[2016-05-08] MEDS: D5W-0.45 NACL + KCL 20 MEQ 1,000 ML IV SCH ×3 (04:50→17:05)
[2016-05-08] MEDS: PANTOPRAZOLE 40 MG INJ IV SCH (06:06)
[2016-05-08 06:31] LABS: ADD SCAN DIFF NO
[2016-05-08 07:04] LABS: CREATININE 0.7 mg/dl (0.61-1.24)
[2016-05-08 07:05] LABS: BASOPHILS % 0.5 % (0.0-2.0); HEMATOCRIT 40.1 % (42.0-52.0); HEMOGLOBIN 13.7 g/dl (14.0-18.0); LYMPHOCYTES # 1.5 10^3/ul (0.8-2.9); LYMPHOCYTES % 23.7 % (15.0-51.0); MEAN CORPUSCULAR HEMOGLOBIN 30.7 pg (29.0-33.0); MEAN CORPUSCULAR HGB CONC 34.2 g/dl (32.0-37.0); MEAN CORPUSCULAR VOLUME 89.9 fl (82.0-101.0); MEAN PLATELET VOLUME 11.7 fl (7.4-10.4); MONOCYTE # 0.7 10^3/ul (0.3-0.9); NEUTROPHIL # 3.9 10^3/ul (1.6-7.5); NEUTROPHILS % 64.3 % (39.0-77.0); PLATELET COUNT 221 10^3/UL (140-415); RED BLOOD COUNT 4.46 10^6/ul (4.70-6.10); RED CELL DISTRIBUTION WIDTH 13.6 % (11.5-14.5); WHITE BLOOD COUNT 6.1 10^3/ul (4.8-10.8)
[2016-05-08 07:06] LABS: CALCIUM 8.4 mg/dl (8.4-10.2); MAGNESIUM 2.1 mg/dl (1.7-2.5)
[2016-05-08 08:01] LABS: AADO2 Arterial 32.2 mmHg (7.0-24.0); Allen Test ACCEPTAB; Arterial Base Excess -2.8 mmol/L (-3.0-3); Arterial COHb 0.3 % (0.0-3.0); Arterial Fraction of Oxyhgb 97.5 % (93.0-99.0); Arterial HCO3 21.1 mmol/L (22.0-26.0); Arterial MetHb 0.7 % (0.0-1.5); Arterial Total Hemglobin 14.6 g/dl (12.0-18.0); Blood Gas Low PEEP Setting 0 cmH2O; MODE VENT - AC
--- NOTE | 2016-05-08 08:38 | RADRPT ---
PROCEDURE: XR Chest 1 View. CLINICAL INDICATION: Shortness of breath, pneumonia, congestive heart failure. TECHNIQUE: AP view of the chest was obtained. COMPARISON: May 06, 2016 FINDINGS: The cardiomediastinal silhouette is within normal limits. Endotracheal and nasogastric tubes are sta ble and appear in grossly appropriate location. Elevation of the right hemidiaphragm continues to b e seen. Atelectasis is noted at the right lung base. No consolidations are identified. No pneumoth orax is seen. Osseous structures are intact. IMPRESSION: Stable support lines and tubes. Elevation of the right hemidiaphragm with associated basilar atelectasis. RPTAT: AA .Marco Booker MD, Date Time Electronically viewed and signed by .Marco Booker MD, on 05/08/2016 08:38 .P/
[2016-05-08] MEDS: ENOXAPARIN 40 MG/0.4 ML SYG SC SCH (08:57)
--- NOTE | 2016-05-08 09:39 | CONS ---
Date/Time of Note Date/Time of Note DATE: 05/08/16 TIME: 09:37 Assessment/Plan Assessment/Plan Chief Complaint/Hosp Course Pulmonary critical care consultation is requested for respiratory failure. Next History presenting; patient is a 20-year-old male who was brought into the hospital yesterday after he was found agitated on the street. Upon evaluation patient was discovered to have multidrug overdose and he was intubated for airway protection and transferred to ICU. By the time I saw the patient the patient is orally intubated and sedated. History was obtained from medical records. Past medical history; is evidently for depression. No other history available apparently none. Next Medications; reviewed. Allergies; no known drug allergies reported. Social history; based upon drug screening patient is a drug user. Family history; not available. Occupational history; not available. Review of systems; unable to be obtained at this time. General exam; young male, or intubated, sedated. Currently in no distress. Problems: Additional Assessment/Plan Ventilator settings are assist control 16, tidal volume 500, PEEP of 5, 30% FiO2. Next Chest x-ray was reviewed from today which is totally clear. Assessment recommendations; 1. Patient admitted for respiratory failure due to multidrug overdose. 2. Patient remained hemodynamically stable. Currently no evidence of any infective process. 3. Essentially benign examination. Hold sedation. Once the patient is off sedation he will be evaluated for weaning from ventilator. Meanwhile discontinue Zosyn. I did have a detailed discussion the patient's mother at bedside by means of a nurse per diem interpreter. Consultation Date/Type/Reason Admit Date/Time May 05, 2016 at 13:13 Initial Consult Date 05/05/16 Type of Consultation: Pulmonary/critical care 24 HR Interval Summary Free Text/Dictation Patient condition remains critical. Still requiring sedation. Has remained hemodynamically stable. Exam; young male, orally intubated, sedated currently in no distress. Exam/Review of Systems Vital Signs Vitals Vital Signs Date Time Temp Pulse Resp B/P Pulse Ox O2 Delivery O2 Flow Rate FiO2 05/08/16 08:00 71 05/08/16 08:00 30 05/08/16 08:00 98.8 16 139/78 100 Mechanical Ventilator Intake and Output 05/07/16 05/07/16 05/08/16 15:00 23:00 07:00 Intake Total 2922 ml 1327 ml 1143 ml Output Total 480 ml 1055 ml 1080 ml Balance 2442 ml 272 ml 63 ml Exam HEENT exam; supple neck, no JVD. No lymphadenopathy. Midline trachea. No thyromegaly. Orally intubated. Patient has good dentition. Pupils are midsize and reactive to light bilaterally. No thyromegaly. Chest examination; clear to auscultation bilaterally. S1-S2 audible, no murmurs. Regular rhythm. Abdomen examination; soft, nondistended. No organomegaly. Bowel sounds audible. Extremity examination; no peripheral edema. Pulses 1+ bilaterally. CRABBER examination; patient is sedated. Results Result Diagram: 05/08/16 0550 05/08/16 0550 Results 24 hrs Laboratory Tests Test 05/08/16 05:50 05/08/16 07:00 White Blood Count 6.1 # Red Blood Count 4.46 L Hemoglobin 13.7 L Hematocrit 40.1 L Mean Corpuscular Volume 89.9 Mean Corpuscular Hemoglobin 30.7 Mean Corpuscular Hemoglobin Concent 34.2 Red Cell Distribution Width 13.6 Platelet Count 221 Mean Platelet Volume 11.7 H Neutrophils % 64.3 Lymphocytes % 23.7 Monocytes % 11.0 Eosinophils % 0.0 Basophils % 0.5 Nucleated Red Blood Cells % 0.0 Neutrophils # 3.9 Lymphocytes # 1.5 Monocytes # 0.7 Eosinophils # 0.0 Basophils # 0.0 Nucleated Red Blood Cells # 0.0 Sodium Level 146 H Potassium Level 4.0 Chloride Level 112 H Carbon Dioxide Level 23 Anion Gap 15 Blood Urea Nitrogen 2 L Creatinine 0.70 Glucose Level 121 Calcium Level 8.4 Phosphorus Level 3.0 Magnesium Level 2.1 Creatine Kinase 760 H Blood Gas Specimen Source Blood arterial Arterial Blood Date Drawn 05/08/2016 7:16:00 AM Arterial Blood pH (Temp corrected) 7.404 Arterial Blood pCO2 (Temp correct) 34.6 L Arterial Blood pO2 (Temp corrected) 141.0 H Arterial Blood HCO3 21.1 L Arterial Blood Base Excess -2.8 Arterial Blood Oxygen Saturation 98.5 H Colton Test ACCEPTAB Arterial Blood Gas Puncture Site Right Radial Arterial Blood Carboxyhemoglobin 0.3 Arterial Blood Methemoglobin 0.7 Blood Gas A-a O2 Differential 32.2 H Oxyhemoglobin Percent 97.5 Total Hemoglobin 14.6 Blood Gas Temperature 37.0 Blood Gas Respiration Rate 16.0 Blood Gas Actual Respiration Rate 16 Blood Gas Modality VENT - AC FiO2 30.0 Blood Gas Tidal Volume 500.0 Blood Gas Low PEEP Setting 0 Blood Gas Notified Whom JLD Blood Gas Notified Time 05/08/2016 7:37:00 AM Medications Medications Current Medications Ondansetron HCl (Zofran Inj) 4 mg Q6H PRN IV NAUSEA AND/OR VOMITING; Start at 01:30 Acetaminophen (Tylenol Liquid) 650 mg Q6H PRN PO PAIN LEVEL 1-3 OR FEVER; Start 05/05/16 at 01:30 Pantoprazole (Protonix Iv) 40 mg DAILY@06 IV Last administered on 05/08/16 06: 06; Admin Dose 40 MG; Start 05/05/16 at 06:00 Enoxaparin Sodium (Lovenox) 40 mg DAILY SC Last administered on 05/08/16 08:57 ; Admin Dose 40 MG; Start 05/05/16 at 09:00 Haloperidol 5 mg 5 mg Q12H IV Last administered on 05/08/16 02:34; Admin Dose 5 MG; Start 05/05/16 at 01:30 Piperacillin Sod/ Tazobactam Sod 100 ml @ 200 mls/hr Q8H IVPB Last administered on 05/08/16 08:56; Admin Dose 200 MLS/HR; Start 05/05/16 at 01:30 Propofol 100 ml @ 2.379 mls/ hr Q12H IV Last administered on 05/08/16 07:31; Admin Dose 19.032 MLS/HR; Start 05/05/16 at 06:00 Fentanyl 100 ml @ 2.5 mls/hr TITRATE IV Last administered on 05/05/16 08:51; Admin Dose 10 MLS/HR; Start 05/05/16 at 09:00 Midazolam HCl 50 ml @ 1 mls/hr TITRATE IV Last administered on 05/08/16 03:56 ; Admin Dose 5 MLS/HR; Start 05/05/16 at 11:00 Potassium Chloride/Dextrose/ Sod Cl (D5-1/2ns + KCl 20 Meq) 1,000 ml @ 150 mls/ hr Q6H40M IV Last administered on 05/08/16 04:50; Admin Dose 150 MLS/HR; Start 05/06/16 at 11:30 Olanzapine (Zyprexa) 15 mg HS PO ; Start 05/08/16 at 21:00 ROBBY OCONNOR May 08, 2016 09:39
--- NOTE | 2016-05-08 10:12 | PN ---
Date/Time of Note Date/Time of Note DATE: 05/08/16 TIME: 09:50 Assessment/Plan VTE Prophylaxis VTE Prophylaxis Intervention: SCD's Lines/Catheters IV Catheter Type (from Nrsg): Peripheral IV Urinary Cath still in place: Yes Reason Cath still needed: other (indicate) (monitor UOP while on Vent ) Assessment/Plan Assessment/Plan 20 yo male with: 1. Psychosis/Agitation with possibly underlying Schizophrenia or some Psychotic disorder, non-compliance with antipsychotic medications and also Cocaine use. Off Sedation and attempting to wean off Vent Patient restarted on Zyprexa last night and still agitated off sedation this AM trying to pull tube, also on Haldol bid and currently on Versed gtt. PET team/telepsych consult once extubated student services dean following 2. Acute respiratory failure and intubated for airway protection also. Concerns for aspiration PNA as patient was vomiting during intubation Continue Zosyn until extubated 3. Withdrawal reported so patient on Versed gtt primarily, monitor 4. Rhabdomyolysis, continue IVF. Much better uop. Monitor CK and replete K and Mag prn Prophylaxis: Protonix for GI ppx and Lovenox for DVT ppx. Disposition: Weaning down sedation and hopefully to extubate today, Back on Zyprexa. Subjective 24 Hr Interval Summary Free Text/Dictation Patient off sedation for a few minutes and he is biting the tube and even with restraints trying to pull ETT out No following commands Back on sedation Exam/Review of Systems Vital Signs Vitals Vital Signs Date Time Temp Pulse Resp B/P Pulse Ox O2 Delivery O2 Flow Rate FiO2 05/08/16 09:37 84 28 100 30 05/08/16 08:00 98.8 139/78 Mechanical Ventilator Intake and Output 05/07/16 05/07/16 05/08/16 15:00 23:00 07:00 Intake Total 2922 ml 1327 ml 1143 ml Output Total 480 ml 1055 ml 1080 ml Balance 2442 ml 272 ml 63 ml Exam Constitutional: other (agitated off sedation, on restraints ) Respiratory: clear to auscultation, normal air movement Cardiovascular: nl pulses, regular rate and rhythm Gastrointestinal: non-tender, soft Musculoskeletal: nl extremities to inspection, other (no edema, clubbing or cyanosis ) Neurological: other (agitated, biting down on tube ) Results Result Diagram: 05/08/16 0550 05/08/16 0550 Results 24 hrs Laboratory Tests Test 05/08/16 05:50 05/08/16 07:00 White Blood Count 6.1 # Red Blood Count 4.46 L Hemoglobin 13.7 L Hematocrit 40.1 L Mean Corpuscular Volume 89.9 Mean Corpuscular Hemoglobin 30.7 Mean Corpuscular Hemoglobin Concent 34.2 Red Cell Distribution Width 13.6 Platelet Count 221 Mean Platelet Volume 11.7 H Neutrophils % 64.3 Lymphocytes % 23.7 Monocytes % 11.0 Eosinophils % 0.0 Basophils % 0.5 Nucleated Red Blood Cells % 0.0 Neutrophils # 3.9 Lymphocytes # 1.5 Monocytes # 0.7 Eosinophils # 0.0 Basophils # 0.0 Nucleated Red Blood Cells # 0.0 Sodium Level 146 H Potassium Level 4.0 Chloride Level 112 H Carbon Dioxide Level 23 Anion Gap 15 Blood Urea Nitrogen 2 L Creatinine 0.70 Glucose Level 121 Calcium Level 8.4 Phosphorus Level 3.0 Magnesium Level 2.1 Creatine Kinase 760 H Blood Gas Specimen Source Blood arterial Arterial Blood Date Drawn 05/08/2016 7:16:00 AM Arterial Blood pH (Temp corrected) 7.404 Arterial Blood pCO2 (Temp correct) 34.6 L Arterial Blood pO2 (Temp corrected) 141.0 H Arterial Blood HCO3 21.1 L Arterial Blood Base Excess -2.8 Arterial Blood Oxygen Saturation 98.5 H Colton Test ACCEPTAB Arterial Blood Gas Puncture Site Right Radial Arterial Blood Carboxyhemoglobin 0.3 Arterial Blood Methemoglobin 0.7 Blood Gas A-a O2 Differential 32.2 H Oxyhemoglobin Percent 97.5 Total Hemoglobin 14.6 Blood Gas Temperature 37.0 Blood Gas Respiration Rate 16.0 Blood Gas Actual Respiration Rate 16 Blood Gas Modality VENT - AC FiO2 30.0 Blood Gas Tidal Volume 500.0 Blood Gas Low PEEP Setting 0 Blood Gas Notified Whom JLD Blood Gas Notified Time 05/08/2016 7:37:00 AM Medications Medications Current Medications Ondansetron HCl (Zofran Inj) 4 mg Q6H PRN IV NAUSEA AND/OR VOMITING; Start at 01:30 Acetaminophen (Tylenol Liquid) 650 mg Q6H PRN PO PAIN LEVEL 1-3 OR FEVER; Start 05/05/16 at 01:30 Pantoprazole (Protonix Iv) 40 mg DAILY@06 IV Last administered on 05/08/16 06: 06; Admin Dose 40 MG; Start 05/05/16 at 06:00 Enoxaparin Sodium (Lovenox) 40 mg DAILY SC Last administered on 05/08/16 08:57 ; Admin Dose 40 MG; Start 05/05/16 at 09:00 Haloperidol 5 mg 5 mg Q12H IV Last administered on 05/08/16 02:34; Admin Dose 5 MG; Start 05/05/16 at 01:30 Propofol 100 ml @ 2.379 mls/ hr Q12H IV Last administered on 05/08/16 07:31; Admin Dose 19.032 MLS/HR; Start 05/05/16 at 06:00 Fentanyl 100 ml @ 2.5 mls/hr TITRATE IV Last administered on 05/05/16 08:51; Admin Dose 10 MLS/HR; Start 05/05/16 at 09:00 Midazolam HCl 50 ml @ 1 mls/hr TITRATE IV Last administered on 05/08/16 03:56 ; Admin Dose 5 MLS/HR; Start 05/05/16 at 11:00 Potassium Chloride/Dextrose/ Sod Cl (D5-1/2ns + KCl 20 Meq) 1,000 ml @ 150 mls/ hr Q6H40M IV Last administered on 05/08/16 04:50; Admin Dose 150 MLS/HR; Start 05/06/16 at 11:30 Olanzapine (Zyprexa) 15 mg HS PO ; Start 05/08/16 at 21:00 TEJ SEQUEIRA May 08, 2016 10:05
[2016-05-08] MEDS: ONDANSETRON 4 MG INJ IV PRN (14:30)
[2016-05-08] MEDS: OLANZAPINE 5 MG TAB PO SCH (21:37)
[2016-05-09] VITALS (68 sets, daily range): BP systolic 99–142; BP diastolic 42–119; PULSE 61–113; RESP 12–41
[2016-05-09] MEDS: ALBUTEROL HFA 8 GM INHALER INH SCH ×6 (01:15→20:00)
[2016-05-09] MEDS: IPRATROPIUM (HFA) 12.9 GM INHALER INH SCH ×6 (01:15→20:00)
[2016-05-09] MEDS: HALOPERIDOL 5 MG INJ IV SCH ×2 (02:39→14:09)
[2016-05-09 05:02] LABS: ADD SCAN DIFF NO
[2016-05-09 05:07] LABS: BASOPHILS % 0.3 % (0.0-2.0); EOSINOPHILS % 0.1 % (0.0-7.0); HEMATOCRIT 40.3 % (42.0-52.0); HEMOGLOBIN 13.3 g/dl (14.0-18.0); LYMPHOCYTES # 1.7 10^3/ul (0.8-2.9); MEAN CORPUSCULAR HEMOGLOBIN 29.7 pg (29.0-33.0); MONOCYTE # 0.8 10^3/ul (0.3-0.9); NEUTROPHIL # 5.2 10^3/ul (1.6-7.5); NEUTROPHILS % 67.5 % (39.0-77.0); PLATELET COUNT 241 10^3/UL (140-415); RED BLOOD COUNT 4.48 10^6/ul (4.70-6.10); RED CELL DISTRIBUTION WIDTH 13.8 % (11.5-14.5); WHITE BLOOD COUNT 7.7 10^3/ul (4.8-10.8)
[2016-05-09] MEDS: PANTOPRAZOLE 40 MG INJ IV SCH (05:11)
[2016-05-09] MEDS: D5W-0.45 NACL + KCL 20 MEQ 1,000 ML IV SCH ×3 (05:12→20:34)
[2016-05-09 05:13] LABS: CHLORIDE 112 mmol/L (97-110); POTASSIUM 3.8 mmol/L (3.5-5.1); SODIUM 145 mmol/L (135-144)
[2016-05-09 05:16] LABS: ANION GAP 13 (8-16); CARBON DIOXIDE 24 mmol/L (21-31); CREATININE 0.65 mg/dl (0.61-1.24)
[2016-05-09 05:17] LABS: CALCIUM 8.6 mg/dl (8.4-10.2); GLUCOSE 115 mg/dl (70-220)
[2016-05-09 05:19] LABS: MAGNESIUM 1.7 mg/dl (1.7-2.5); PHOSPHORUS 3.2 mg/dl (2.5-4.9)
[2016-05-09 05:22] LABS: BLOOD UREA NITROGEN < 2 mg/dl (7-20)
--- NOTE | 2016-05-09 05:45 | PN ---
Date/Time of Note Date/Time of Note DATE: 05/09/16 TIME: 05:37 Assessment/Plan VTE Prophylaxis VTE Prophylaxis Intervention: LMWH Lines/Catheters IV Catheter Type (from Nrs): Peripheral IV Urinary Cath still in place: Yes Reason Cath still needed: other (indicate) (Intubated patient) Assessment/Plan Assessment/Plan [facility] 1. 20 yo man admitted four days ago with psychosis/agitation, possibly underlying schizophrenia, non-compliance with antipsychotic medications, cocaine and marijuana use, reported homicidal ideation. * Family wants to be present once he is taken off sedation this morning, with attempted weaning off the ventilator * Day 3 Zyprexa plus Haldol BID * PET team/telepsych consult anticipated today once he is extubated * guest services assistant 2. Intubated for acute respiratory failure and airway protection. Concerns for aspiration pneumonia, with emesis reported during intubation. Chest exam and CXR both clear at this point, apart from right basilar atelectasis on portable film yesterday (new compared to admission CXR). MRSA negative. * Continue Zosyn until extubated 3. Drug abuse issues 4. Rhabdomyolysis, commonly seen with cocaine use. Good urine output, even I/O now. * Continue IV fluids for renal protection * Monitor CK * Potassium and Magnesium replacement currently 5. Nutrition * nasogastric tube feedings. 6. Prophylaxis: Protonix for GI ppx and Lovenox for DVT prevention. 7. Disposition: Weaning down sedation and hopefully to extubate today. Alfie Amaral MD PhD [phone] Subjective 24 Hr Interval Summary Free Text/Dictation RN reports agitation with lifting of sedation. No other active issues overnight. Exam/Review of Systems Vital Signs Vitals Vital Signs Date Time Temp Pulse Resp B/P Pulse Ox O2 Delivery O2 Flow Rate FiO2 05/09/16 05:33 84 17 98 30 05/09/16 03:30 134/75 Mechanical Ventilator 05/09/16 00:00 98.2 Intake and Output 05/08/16 05/08/16 05/09/16 15:00 23:00 07:00 Intake Total 1789.434 ml 1994.128 ml 770 ml Output Total 1775 ml 1390 ml 430 ml Balance 14.434 ml 604.128 ml 340 ml Exam Constitutional: Asleep, ventilated, on propofol/versed, restrained Respiratory: Clear to auscultation bilaterally, normal air movement. AC 16, TV 500, PEEP 0, FiO2 30%. Cardiovascular: Symmetric pulses, regular rate and rhythm Gastrointestinal: non-tender, soft, no HSM. Musculoskeletal: nl extremities to inspection, with no edema, clubbing or cyanosis; good peripheral pulses and perfusion. Neurological: Sedated, toes downgoing. Results Result Diagram: 05/09/16 0440 05/09/16 0440 Results 24 hrs Laboratory Tests Test 05/08/16 05:50 05/08/16 07:00 05/09/16 04:40 White Blood Count 6.1 # 7.7 # Red Blood Count 4.46 L 4.48 L Hemoglobin 13.7 L 13.3 L Hematocrit 40.1 L 40.3 L Mean Corpuscular Volume 89.9 90.0 Mean Corpuscular Hemoglobin 30.7 29.7 Mean Corpuscular Hemoglobin Concent 34.2 33.0 Red Cell Distribution Width 13.6 13.8 Platelet Count 221 241 Mean Platelet Volume 11.7 H 11.0 H Neutrophils % 64.3 67.5 Lymphocytes % 23.7 22.0 Monocytes % 11.0 10.0 Eosinophils % 0.0 0.1 Basophils % 0.5 0.3 Nucleated Red Blood Cells % 0.0 0.0 Neutrophils # 3.9 5.2 Lymphocytes # 1.5 1.7 Monocytes # 0.7 0.8 Eosinophils # 0.0 0.0 Basophils # 0.0 0.0 Nucleated Red Blood Cells # 0.0 0.0 Sodium Level 146 H 145 H Potassium Level 4.0 3.8 Chloride Level 112 H 112 H Carbon Dioxide Level 23 24 Anion Gap 15 13 Blood Urea Nitrogen 2 L < 2 L Creatinine 0.70 0.65 Glucose Level 121 115 Calcium Level 8.4 8.6 Phosphorus Level 3.0 3.2 Magnesium Level 2.1 1.7 Creatine Kinase 760 H 584 H Blood Gas Specimen Source Blood arterial Arterial Blood Date Drawn 05/08/2016 7:16:00 AM Arterial Blood pH (Temp corrected) 7.404 Arterial Blood pCO2 (Temp correct) 34.6 L Arterial Blood pO2 (Temp corrected) 141.0 H Arterial Blood HCO3 21.1 L Arterial Blood Base Excess -2.8 Arterial Blood Oxygen Saturation 98.5 H Colton Test ACCEPTAB Arterial Blood Gas Puncture Site Right Radial Arterial Blood Carboxyhemoglobin 0.3 Arterial Blood Methemoglobin 0.7 Blood Gas A-a O2 Differential 32.2 H Oxyhemoglobin Percent 97.5 Total Hemoglobin 14.6 Blood Gas Temperature 37.0 Blood Gas Respiration Rate 16.0 Blood Gas Actual Respiration Rate 16 Blood Gas Modality VENT - AC FiO2 30.0 Blood Gas Tidal Volume 500.0 Blood Gas Low PEEP Setting 0 Blood Gas Notified Whom JLD Blood Gas Notified Time 05/08/2016 7:37:00 AM Medications Medications Current Medications Ondansetron HCl (Zofran Inj) 4 mg Q6H PRN IV NAUSEA AND/OR VOMITING Last administered on 05/08/16 14:30; Admin Dose 4 MG; Start 05/05/16 at 01:30 Acetaminophen (Tylenol Liquid) 650 mg Q6H PRN PO PAIN LEVEL 1-3 OR FEVER; Start 05/05/16 at 01:30 Pantoprazole (Protonix Iv) 40 mg DAILY@06 IV Last administered on 05/09/16 05: 11; Admin Dose 40 MG; Start 05/05/16 at 06:00 Enoxaparin Sodium (Lovenox) 40 mg DAILY SC Last administered on 05/08/16 08:57 ; Admin Dose 40 MG; Start 05/05/16 at 09:00 Haloperidol 5 mg 5 mg Q12H IV Last administered on 05/09/16 02:39; Admin Dose 5 MG; Start 05/05/16 at 01:30 Propofol 100 ml @ 2.379 mls/ hr Q12H IV Last administered on 05/08/16 22:44; Admin Dose 19.01 MLS/HR; Start 05/05/16 at 06:00 Fentanyl 100 ml @ 2.5 mls/hr TITRATE IV Last administered on 05/05/16 08:51; Admin Dose 10 MLS/HR; Start 05/05/16 at 09:00 Midazolam HCl 50 ml @ 1 mls/hr TITRATE IV Last administered on 05/08/16 21:34 ; Admin Dose 5 MLS/HR; Start 05/05/16 at 11:00 Potassium Chloride/Dextrose/ Sod Cl (D5-1/2ns + KCl 20 Meq) 1,000 ml @ 150 mls/ hr Q6H40M IV Last administered on 05/09/16 05:12; Admin Dose 150 MLS/HR; Start 05/06/16 at 11:30 Olanzapine (Zyprexa) 15 mg HS PO Last administered on 05/08/16 21:37; Admin Dose 15 MG; Start 05/08/16 at 21:00 BERT AMARAL M.D. May 09, 2016 05:45
[2016-05-09] MEDS: PROPOFOL 100 ML IV SCH ×4 (05:57→20:33)
[2016-05-09] MEDS: MIDAZOLAM (DRIP) 50 mg/50 mL 50 ML IV SCH ×2 (08:13→20:32)
[2016-05-09] MEDS: ONDANSETRON 4 MG INJ IV PRN (08:57)
[2016-05-09] MEDS: ENOXAPARIN 40 MG/0.4 ML SYG SC SCH (08:58)
--- NOTE | 2016-05-09 12:21 | CONS ---
Date/Time of Note Date/Time of Note DATE: 05/09/16 TIME: 12:19 Assessment/Plan Assessment/Plan Chief Complaint/Hosp Course Pulmonary critical care consultation is requested for respiratory failure. Next History presenting; patient is a 20-year-old male who was brought into the hospital yesterday after he was found agitated on the street. Upon evaluation patient was discovered to have multidrug overdose and he was intubated for airway protection and transferred to ICU. By the time I saw the patient the patient is orally intubated and sedated. History was obtained from medical records. Past medical history; is evidently for depression. No other history available apparently none. Next Medications; reviewed. Allergies; no known drug allergies reported. Social history; based upon drug screening patient is a drug user. Family history; not available. Occupational history; not available. Review of systems; unable to be obtained at this time. General exam; young male, or intubated, sedated. Currently in no distress. Problems: Additional Assessment/Plan Ventilator settings are AC of 16, tidal volume 500, PEEP of 0, 30% FiO2. Assessment recommendations; 1. Patient admitted for multidrug overdose leading to respiratory failure. Unable to wean off ventilator due to severe acute agitation off sedation. 2. Currently no evidence of any infective process. 3. Patient remained hemodynamically stable. Hold sedation again. Once the patient is off sedative effect he will be evaluated for possible weaning from ventilator which will depend upon recovery of adequate mental status. Meanwhile continue current treatment. Consultation Date/Type/Reason Admit Date/Time May 05, 2016 at 13:13 Initial Consult Date 05/05/16 Type of Consultation: Pulmonary/critical care 24 HR Interval Summary Free Text/Dictation Patient condition remains critical but stable. Has remained hemodynamically stable. No untoward events reported. Patient however could not be weaned off ventilator yesterday due to severe agitation off sedation. General exam; young male, orally intubated sedated currently in no distress. Exam/Review of Systems Vital Signs Vitals Vital Signs Date Time Temp Pulse Resp B/P Pulse Ox O2 Delivery O2 Flow Rate FiO2 05/09/16 11:59 98.1 83 16 99/46 95 Mechanical Ventilator 05/09/16 11:30 30 Intake and Output 05/08/16 05/08/16 05/09/16 15:00 23:00 07:00 Intake Total 1789.434 ml 1994.128 ml 1292.032 ml Output Total 1775 ml 1390 ml 735 ml Balance 14.434 ml 604.128 ml 557.032 ml Exam HEENT examination; supple neck, no JVD. No lymphadenopathy. Midline trachea. No thyromegaly. Orally intubated. Pupils are midsize and reactive to light. Patient has good dentition. No neck masses. No thyromegaly. Chest examination; clear to auscultation bilaterally. S1-S2 audible, no murmurs. Regular rhythm. Abdomen examination; soft, nondistended. No organomegaly. Bowel sounds audible. Extremity examination; no peripheral edema. Pulses 2+ bilaterally. GOLF TECHNICIAN examination; patient is sedated. Results Result Diagram: 05/09/1643905/09/16439 Results 24 hrs Laboratory Tests Test 05/09/16 04:40 White Blood Count 7.7 # Red Blood Count 4.48 L Hemoglobin 13.3 L Hematocrit 40.3 L Mean Corpuscular Volume 90.0 Mean Corpuscular Hemoglobin 29.7 Mean Corpuscular Hemoglobin Concent 33.0 Red Cell Distribution Width 13.8 Platelet Count 241 Mean Platelet Volume 11.0 H Neutrophils % 67.5 Lymphocytes % 22.0 Monocytes % 10.0 Eosinophils % 0.1 Basophils % 0.3 Nucleated Red Blood Cells % 0.0 Neutrophils # 5.2 Lymphocytes # 1.7 Monocytes # 0.8 Eosinophils # 0.0 Basophils # 0.0 Nucleated Red Blood Cells # 0.0 Sodium Level 145 H Potassium Level 3.8 Chloride Level 112 H Carbon Dioxide Level 24 Anion Gap 13 Blood Urea Nitrogen < 2 L Creatinine 0.65 Glucose Level 115 Calcium Level 8.6 Phosphorus Level 3.2 Magnesium Level 1.7 Creatine Kinase 584 H Medications Medications Current Medications Ondansetron HCl (Zofran Inj) 4 mg Q6H PRN IV NAUSEA AND/OR VOMITING Last administered on 05/09/16 08:57; Admin Dose 4 MG; Start 05/05/16 at 01:30 Acetaminophen (Tylenol Liquid) 650 mg Q6H PRN PO PAIN LEVEL 1-3 OR FEVER; Start 05/05/16 at 01:30 Pantoprazole (Protonix Iv) 40 mg DAILY@06 IV Last administered on 05/09/16 05: 11; Admin Dose 40 MG; Start 05/05/16 at 06:00 Enoxaparin Sodium (Lovenox) 40 mg DAILY SC Last administered on 05/09/16 08:58 ; Admin Dose 40 MG; Start 05/05/16 at 09:00 Haloperidol 5 mg 5 mg Q12H IV Last administered on 05/09/16 02:39; Admin Dose 5 MG; Start 05/05/16 at 01:30 Propofol 100 ml @ 2.379 mls/ hr Q12H IV Last administered on 05/09/16 10:59; Admin Dose 19.032 MLS/HR; Start 05/05/16 at 06:00 Fentanyl 100 ml @ 2.5 mls/hr TITRATE IV Last administered on 05/05/16 08:51; Admin Dose 10 MLS/HR; Start 05/05/16 at 09:00 Midazolam HCl 50 ml @ 1 mls/hr TITRATE IV Last administered on 05/09/16 08:13 ; Admin Dose 5 MLS/HR; Start 05/05/16 at 11:00 Potassium Chloride/Dextrose/ Sod Cl (D5-1/2ns + KCl 20 Meq) 1,000 ml @ 150 mls/ hr Q6H40M IV Last administered on 05/09/16 05:12; Admin Dose 150 MLS/HR; Start 05/06/16 at 11:30 Olanzapine (Zyprexa) 15 mg HS PO Last administered on 05/08/16 21:37; Admin Dose 15 MG; Start 05/08/16 at 21:00 ROBBY OCONNOR 25, 2017 12:21
[2016-05-09] MEDS: OLANZAPINE 5 MG TAB PO SCH (20:34)
[2016-05-10] VITALS (51 sets, daily range): BP systolic 104–156; BP diastolic 47–89; PULSE 60–121; RESP 12–42
[2016-05-10] MEDS: IPRATROPIUM (HFA) 12.9 GM INHALER INH SCH ×3 (00:28→08:07)
[2016-05-10] MEDS: ALBUTEROL HFA 8 GM INHALER INH SCH ×3 (00:28→08:07)
[2016-05-10] MEDS: HALOPERIDOL 5 MG INJ IV SCH ×3 (01:30→23:52)
[2016-05-10] MEDS: D5W-0.45 NACL + KCL 20 MEQ 1,000 ML IV SCH ×5 (02:10→17:45)
[2016-05-10] MEDS: PROPOFOL 100 ML IV SCH ×2 (02:48→06:03)
[2016-05-10] MEDS: MIDAZOLAM (DRIP) 50 mg/50 mL 50 ML IV SCH (06:04)
[2016-05-10] MEDS: PANTOPRAZOLE 40 MG INJ IV SCH (06:04)
[2016-05-10] MEDS: ENOXAPARIN 40 MG/0.4 ML SYG SC SCH (08:48)
--- NOTE | 2016-05-10 09:13 | CONS ---
Date/Time of Note Date/Time of Note DATE: 05/10/16 TIME: 09:11 Assessment/Plan Assessment/Plan Chief Complaint/Hosp Course Pulmonary critical care consultation is requested for respiratory failure. Next History presenting; patient is a 20-year-old male who was brought into the hospital yesterday after he was found agitated on the street. Upon evaluation patient was discovered to have multidrug overdose and he was intubated for airway protection and transferred to ICU. By the time I saw the patient the patient is orally intubated and sedated. History was obtained from medical records. Past medical history; is evidently for depression. No other history available apparently none. Next Medications; reviewed. Allergies; no known drug allergies reported. Social history; based upon drug screening patient is a drug user. Family history; not available. Occupational history; not available. Review of systems; unable to be obtained at this time. General exam; young male, or intubated, sedated. Currently in no distress. Problems: Additional Assessment/Plan Ventilator settings are AC of 16, tidal volume 500, PEEP of 0, 40% FiO2. Next Assessment recommendations; 1. Patient admitted for multidrug overdose causing respiratory failure. 2. Patient has remained hemodynamically stable. Currently no evidence of any infective process. Hold sedation again. Weaning from ventilator will depend upon adequate mentation. Patient however does have a history of schizophrenia. That may pose some challenges in putting the patient through traditional weaning process and may just require straight extubation. Consultation Date/Type/Reason Admit Date/Time May 05, 2016 at 13:13 Initial Consult Date 05/05/16 Type of Consultation: Pulmonary/critical care 24 HR Interval Summary Free Text/Dictation Patient condition remains critical. Still requiring full ventilator support. Patient was given a sedation vacation yesterday however he became agitated and had to be re-sedated. Neck General exam; young male, orally intubated, sedated currently in no distress. Exam/Review of Systems Vital Signs Vitals Vital Signs Date Time Temp Pulse Resp B/P Pulse Ox O2 Delivery O2 Flow Rate FiO2 05/10/16 08:10 74 05/10/16 06:00 16 115/61 97 Mechanical Ventilator 05/10/16 05:00 30 05/10/16 04:00 98.9 Intake and Output 05/09/16 05/09/16 05/10/16 15:00 23:00 07:00 Intake Total 1194.192 ml 1392.128 ml 1194 ml Output Total 1025 ml 860 ml 350 ml Balance 169.192 ml 532.128 ml 844 ml Exam HEENT examination; supple neck, no JVD. No lymphadenopathy. Midline trachea. No thyromegaly. Orally intubated. Pupils are midsize and reactive to light bilaterally. Chest examination; clear to auscultation bilaterally. S1-S2 audible, no murmurs. Regular rhythm. Abdomen examination; soft, nondistended. No organomegaly. Bowel sounds audible. Extremity examination; no peripheral edema. Pulses 1+ bilaterally. [employer] examination; patient is sedated. Results Result Diagram: 05/09/1643905/09/16439 Medications Medications Current Medications Ondansetron HCl (Zofran Inj) 4 mg Q6H PRN IV NAUSEA AND/OR VOMITING Last administered on 05/09/16 08:57; Admin Dose 4 MG; Start 05/05/16 at 01:30 Acetaminophen (Tylenol Liquid) 650 mg Q6H PRN PO PAIN LEVEL 1-3 OR FEVER; Start 05/05/16 at 01:30 Pantoprazole (Protonix Iv) 40 mg DAILY@06 IV Last administered on 05/10/16 06: 04; Admin Dose 40 MG; Start 05/05/16 at 06:00 Enoxaparin Sodium (Lovenox) 40 mg DAILY SC Last administered on 05/10/16 08:48 ; Admin Dose 40 MG; Start 05/05/16 at 09:00 Haloperidol 5 mg 5 mg Q12H IV Last administered on 05/10/16 01:30; Admin Dose 5 MG; Start 05/05/16 at 01:30 Propofol 100 ml @ 2.379 mls/ hr Q12H IV Last administered on 05/10/16 06:03; Admin Dose 19.03 MLS/HR; Start 05/05/16 at 06:00 Fentanyl 100 ml @ 2.5 mls/hr TITRATE IV Last administered on 05/05/16 08:51; Admin Dose 10 MLS/HR; Start 05/05/16 at 09:00 Midazolam HCl 50 ml @ 1 mls/hr TITRATE IV Last administered on 05/10/16 06:04 ; Admin Dose 5 MLS/HR; Start 05/05/16 at 11:00 Potassium Chloride/Dextrose/ Sod Cl (D5-1/2ns + KCl 20 Meq) 1,000 ml @ 150 mls/ hr Q6H40M IV Last administered on 05/09/16 20:34; Admin Dose 150 MLS/HR; Start 05/06/16 at 11:30 Olanzapine (Zyprexa) 15 mg HS PO Last administered on 05/09/16 20:34; Admin Dose 15 MG; Start 05/08/16 at 21:00 ROBBY OCONNOR May 10, 2016 09:13
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
[2016-05-10 11:00] LABS: ADD SCAN DIFF NO
[2016-05-10 11:15] LABS: ALBUMIN 3.7 g/dl (3.3-4.9); CHLORIDE 113 mmol/L (97-110); SODIUM 147 mmol/L (135-144)
[2016-05-10 11:16] LABS: POTASSIUM 4.1 mmol/L (3.5-5.1)
[2016-05-10 11:17] LABS: CREATININE 0.62 mg/dl (0.61-1.24)
[2016-05-10 11:18] LABS: ALANINE AMINOTRANSFERASE 41 IU/L (13-69); ALBUMIN/GLOBULIN RATIO 1.12; ALKALINE PHOSPHATASE 100 IU/L (42-121); ANION GAP 14 (8-16); ASPARTATE AMINO TRANSFERASE 47 IU/L (15-46); BILIRUBIN,INDIRECT 0.2 mg/dl (0-1.1); BILIRUBIN,TOTAL 0.2 mg/dl (0.2-1.3); BLOOD UREA NITROGEN 4 mg/dl (7-20); CARBON DIOXIDE 24 mmol/L (21-31); GLUCOSE 106 mg/dl (70-220)
[2016-05-10 11:19] LABS: CALCIUM 9.4 mg/dl (8.4-10.2); CREATINE KINASE 375 IU/L (23-200)
[2016-05-10 11:31] LABS: CK-MB 0.23 ng/ml (0.0-2.4); TROPONIN-I < 0.012 ng/ml (0.00-0.12)
[2016-05-10 11:33] LABS: BASOPHILS % 0.4 % (0.0-2.0); HEMATOCRIT 43.8 % (42.0-52.0); HEMOGLOBIN 14.5 g/dl (14.0-18.0); LYMPHOCYTES # 1.7 10^3/ul (0.8-2.9); LYMPHOCYTES % 22.2 % (15.0-51.0); MEAN CORPUSCULAR HEMOGLOBIN 29.7 pg (29.0-33.0); MEAN CORPUSCULAR HGB CONC 33.1 g/dl (32.0-37.0); MEAN CORPUSCULAR VOLUME 89.8 fl (82.0-101.0); MEAN PLATELET VOLUME 11.5 fl (7.4-10.4); MONOCYTE # 0.7 10^3/ul (0.3-0.9); MONOCYTES % 8.8 % (0.0-11.0); NEUTROPHIL # 5.3 10^3/ul (1.6-7.5); NEUTROPHILS % 68.3 % (39.0-77.0); PLATELET COUNT 241 10^3/UL (140-415); RED BLOOD COUNT 4.88 10^6/ul (4.70-6.10); RED CELL DISTRIBUTION WIDTH 13.8 % (11.5-14.5); WHITE BLOOD COUNT 7.7 10^3/ul (4.8-10.8)
--- NOTE | 2016-05-10 11:39 | RADRPT ---
PROCEDURE: XR Chest. CLINICAL INDICATION: pain TECHNIQUE: Single portable view of the chest was obtained COMPARISON: 05/08/2016 FINDINGS: The endotracheal tube has been removed. There is a nasogastric tube within the stomach. There is d ecrease mild right lower lobe infiltrate.. The heart, lungs and mediastinum are otherwise unchanged. The heart is normal in size. There is mild elevation of the right diaphragm.. RPTAT: AA IMPRESSION: Removal of endotracheal tube. Decreased mild right lower lobe infiltrate. No other significant change. .Nolan Kraus MD, MD Date Time Electronically viewed and signed by .Nolan Kraus MD, MD on 05/10/2016 11:39 .S/
[2016-05-10] MEDS ORDERED: LORAZEPAM 2 MG INJ IV PRN (18:00)
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
[2016-05-10] MEDS: OLANZAPINE 5 MG TAB PO SCH (20:17)
[2016-05-11] VITALS (15 sets, daily range): BP systolic 117–146; BP diastolic 65–95; PULSE 93–123; RESP 16–35
[2016-05-11] MEDS: D5W-0.45 NACL + KCL 20 MEQ 1,000 ML IV SCH ×2 (00:37→08:32)
[2016-05-11] MEDS: PANTOPRAZOLE 40 MG INJ IV SCH (06:24)
[2016-05-11] MEDS: ENOXAPARIN 40 MG/0.4 ML SYG SC SCH (08:33)
--- NOTE | 2016-05-11 09:47 | PN ---
Date/Time of Note Date/Time of Note DATE: 05/11/16 TIME: 09:39 Assessment/Plan VTE Prophylaxis VTE Prophylaxis Intervention: LMWH Lines/Catheters IV Catheter Type (from Nrs): Peripheral IV Urinary Cath still in place: Yes Reason Cath still needed: other (indicate) (to be discontinued today ) Assessment/Plan Assessment/Plan 20 yo male with: 1. Psychosis/Agitation with underlying Schizophrenia, non-compliance with antipsychotic medications and also Cocaine use. Off Vent and on RA Continue Zyprexa qhs and change Haldol to prn Appreciate Telepsych recs and PET team eval pending dining services manager following 2. Cocaine Use: patient reports was to treat voices he was hearing.. 3. Rhabdomyolysis, resolved. D/c IVF. Check BMP in AM Prophylaxis: Protonix for GI ppx and Lovenox for DVT ppx. Disposition: 5150 per psych and to transfer to med surg with sitter, PET team eval once cleared Subjective 24 Hr Interval Summary Free Text/Dictation Patient extubated yesterday, doing clinically well on RA Ambulated with PT today D/c NGT and Leger today and start diet Transfer to Med Surg with sitter PET team per dining services manager Exam/Review of Systems Vital Signs Vitals Vital Signs Date Time Temp Pulse Resp B/P Pulse Ox O2 Delivery O2 Flow Rate FiO2 05/11/16 08:00 123 05/11/16 08:00 98.2 21 122/67 92 Room Air 05/10/16 18:32 2.0 28 Intake and Output 05/10/16 05/10/16 05/11/16 15:00 23:00 07:00 Intake Total 1408 ml 590 ml Output Total 2185 ml 550 ml 3800 ml Balance -777 ml 40 ml -3800 ml Exam Constitutional: alert, oriented Psych: anxiety Respiratory: clear to auscultation, normal air movement Cardiovascular: nl pulses, regular rate and rhythm Gastrointestinal: soft Musculoskeletal: nl extremities to inspection Extremities: normal pulses, other (no edema, clubbing or cyanosis ) Neurological: TIRE TRUCKER II-XII intact, nl mental status, nl speech, nl strength Results Result Diagram: 05/10/16 1036 05/10/16 1036 Results 24 hrs Laboratory Tests Test 05/10/16 10:36 White Blood Count 7.7 Red Blood Count 4.88 Hemoglobin 14.5 Hematocrit 43.8 Mean Corpuscular Volume 89.8 Mean Corpuscular Hemoglobin 29.7 Mean Corpuscular Hemoglobin Concent 33.1 Red Cell Distribution Width 13.8 Platelet Count 241 Mean Platelet Volume 11.5 H Neutrophils % 68.3 Lymphocytes % 22.2 Monocytes % 8.8 Eosinophils % 0.0 Basophils % 0.4 Nucleated Red Blood Cells % 0.0 Neutrophils # 5.3 Lymphocytes # 1.7 Monocytes # 0.7 Eosinophils # 0.0 Basophils # 0.0 Nucleated Red Blood Cells # 0.0 Sodium Level 147 H Potassium Level 4.1 Chloride Level 113 H Carbon Dioxide Level 24 Anion Gap 14 Blood Urea Nitrogen 4 L Creatinine 0.62 Glucose Level 106 Calcium Level 9.4 Total Bilirubin 0.2 Direct Bilirubin 0.00 Indirect Bilirubin 0.2 Aspartate Amino Transf (AST/SGOT) 47 H Alanine Aminotransferase (ALT/SGPT) 41 Alkaline Phosphatase 100 Creatine Kinase 375 #H Creatine Kinase Index 0.1 Creatinine Kinase MB (Mass) 0.23 Troponin I < 0.012 Total Protein 7.0 Albumin 3.7 Globulin 3.30 H Albumin/Globulin Ratio 1.12 Medications Medications Current Medications Ondansetron HCl (Zofran Inj) 4 mg Q6H PRN IV NAUSEA AND/OR VOMITING Last administered on 05/09/16 08:57; Admin Dose 4 MG; Start 05/05/16 at 01:30 Acetaminophen (Tylenol Liquid) 650 mg Q6H PRN PO PAIN LEVEL 1-3 OR FEVER; Start 05/05/16 at 01:30 Pantoprazole (Protonix Iv) 40 mg DAILY@06 IV Last administered on 05/11/16 06: 24; Admin Dose 40 MG; Start 05/05/16 at 06:00 Enoxaparin Sodium (Lovenox) 40 mg DAILY SC Last administered on 05/11/16 08:33 ; Admin Dose 40 MG; Start 05/05/16 at 09:00 Olanzapine (Zyprexa) 15 mg HS PO Last administered on 05/10/16 20:17; Admin Dose 15 MG; Start 05/08/16 at 21:00 Haloperidol (Haldol) 5 mg Q12H PRN IV AGITATION; Start 05/11/16 at 13:30 TEJ SEQUEIRA May 11, 2016 09:47
--- NOTE | 2016-05-11 10:31 | CONS ---
Date/Time of Note Date/Time of Note DATE: 05/11/16 TIME: 10:30 Consult Date/Type/Reason Admit Date/Time May 05, 2016 at 13:13 Initial Consult Date 05/05/16 Type of Consultation: Pulmonary/critical care Subjective Patient is extubated awake alert somewhat confused intermittent agitation Objective Vital Signs Date Time Temp Pulse Resp B/P Pulse Ox O2 Delivery O2 Flow Rate FiO2 05/11/16 08:00 123 05/11/16 08:00 98.2 21 122/67 92 Room Air 05/10/16 18:32 2.0 28 Intake and Output 05/10/16 05/10/16 05/11/16 15:00 23:00 07:00 Intake Total 1408 ml 590 ml Output Total 2185 ml 550 ml 3800 ml Balance -777 ml 40 ml -3800 ml Exam GENERAL: Well-nourished well-developed gentleman comfortable at rest VITAL SIGNS: per chart NECK: Supple. No JVD or lymphadenopathy. CARDIAC EXAM: S1, S2. No added sounds or murmurs. CHEST: A few rales at both lung bases ABDOMEN: Soft, nontender. No guarding or rebound. EXTREMITIES: No cyanosis, clubbing or edema. NEUROLOGIC: Generalized weakness. Results/Medications Result Diagram: 05/10/16 1036 05/10/16 1036 Results 24 hrs Laboratory Tests Test 05/10/16 10:36 White Blood Count 7.7 Red Blood Count 4.88 Hemoglobin 14.5 Hematocrit 43.8 Mean Corpuscular Volume 89.8 Mean Corpuscular Hemoglobin 29.7 Mean Corpuscular Hemoglobin Concent 33.1 Red Cell Distribution Width 13.8 Platelet Count 241 Mean Platelet Volume 11.5 H Neutrophils % 68.3 Lymphocytes % 22.2 Monocytes % 8.8 Eosinophils % 0.0 Basophils % 0.4 Nucleated Red Blood Cells % 0.0 Neutrophils # 5.3 Lymphocytes # 1.7 Monocytes # 0.7 Eosinophils # 0.0 Basophils # 0.0 Nucleated Red Blood Cells # 0.0 Sodium Level 147 H Potassium Level 4.1 Chloride Level 113 H Carbon Dioxide Level 24 Anion Gap 14 Blood Urea Nitrogen 4 L Creatinine 0.62 Glucose Level 106 Calcium Level 9.4 Total Bilirubin 0.2 Direct Bilirubin 0.00 Indirect Bilirubin 0.2 Aspartate Amino Transf (AST/SGOT) 47 H Alanine Aminotransferase (ALT/SGPT) 41 Alkaline Phosphatase 100 Creatine Kinase 375 #H Creatine Kinase Index 0.1 Creatinine Kinase MB (Mass) 0.23 Troponin I < 0.012 Total Protein 7.0 Albumin 3.7 Globulin 3.30 H Albumin/Globulin Ratio 1.12 Medications Current Medications Ondansetron HCl (Zofran Inj) 4 mg Q6H PRN IV NAUSEA AND/OR VOMITING Last administered on 05/09/16 08:57; Admin Dose 4 MG; Start 05/05/16 at 01:30 Acetaminophen (Tylenol Liquid) 650 mg Q6H PRN PO PAIN LEVEL 1-3 OR FEVER; Start 05/05/16 at 01:30 Pantoprazole (Protonix Iv) 40 mg DAILY@06 IV Last administered on 05/11/16 06: 24; Admin Dose 40 MG; Start 05/05/16 at 06:00 Enoxaparin Sodium (Lovenox) 40 mg DAILY SC Last administered on 05/11/16 08:33 ; Admin Dose 40 MG; Start 05/05/16 at 09:00 Olanzapine (Zyprexa) 15 mg HS PO Last administered on 05/10/16 20:17; Admin Dose 15 MG; Start 05/08/16 at 21:00 Haloperidol (Haldol) 5 mg Q12H PRN IV AGITATION; Start 05/11/16 at 13:30 Assessment/Plan Chief Complaint/Hosp Course Assessment 1. Polysubstance abuse 2. History of psychiatric disorder 3. Possible aspiration pneumonia with hypoxemic respiratory failure 3. Dysphagia secondary to above Plan 1. Continue incentive spirometry 2. Continue psychiatric recommendations 3. Advance diet as tolerated 4. Continue DVT and GI prophylaxis 5. PT evaluation Disposition Transfer to [facility] We'll sign off Problems: NATHALIE JOEL MD, [facility] May 11, 2016 10:31
[2016-05-11] MEDS ORDERED: HALOPERIDOL 5 MG INJ IV PRN (13:30)
[2016-05-11] MEDS: OLANZAPINE 5 MG TAB PO SCH (20:56)
[2016-05-12] MEDS: PANTOPRAZOLE 40 MG INJ IV SCH (05:16)
[2016-05-12 07:15] LABS: POTASSIUM 3.3 mmol/L (3.5-5.1)
[2016-05-12 07:17] LABS: CREATININE 0.64 mg/dl (0.61-1.24)
[2016-05-12 07:18] LABS: CALCIUM 9.5 mg/dl (8.4-10.2)
[2016-05-12 08:00] VITALS: BP 154/87; RESP 18
[2016-05-12] MEDS: ENOXAPARIN 40 MG/0.4 ML SYG SC SCH (08:46)
[2016-05-12] MEDS ORDERED: POTASSIUM CHLORIDE (SR) 20 MEQ TAB PO STA (10:59)
--- NOTE | 2016-05-12 11:02 | PN ---
Date/Time of Note Date/Time of Note DATE: 05/12/16 TIME: 11:00 Assessment/Plan VTE Prophylaxis VTE Prophylaxis Intervention: LMWH Lines/Catheters IV Catheter Type (from Nrs): Saline Lock Urinary Cath still in place: No Assessment/Plan Assessment/Plan 20 yo male with: 1. Psychosis/Agitation with underlying Schizophrenia, non-compliance with antipsychotic medications and also Cocaine use. On RA, tolerating po and ambulating Continue Zyprexa qhs PET team eval pending for inpatient psych placement Patient is medically cleared for discharge to psychiatric facility patient services coordinator following 1:1 sitter for now 2. Cocaine Use: patient reports was to treat voices he was hearing.. 3. Rhabdomyolysis, resolved. BMP stable, will replete K with po Prophylaxis: Protonix for GI ppx and Ambulatory Disposition: 5150 per psych and stable from Medical standpoint to be discharged to inpatient psychiatric facility as of today 05/12/16 Subjective 24 Hr Interval Summary Free Text/Dictation Patient is medically cleared for discharge to psychiatric facility as of today Patient tolerating po and calm. Compliant with meds Exam/Review of Systems Vital Signs Vitals Vital Signs Date Time Temp Pulse Resp B/P Pulse Ox O2 Delivery O2 Flow Rate FiO2 05/12/16 08:00 98.1 95 18 154/87 98 05/11/16 12:30 Room Air 05/10/16 18:32 2.0 28 Intake and Output 05/11/16 05/11/16 05/12/16 15:00 23:00 07:00 Intake Total 740 ml 800 ml Output Total 275 ml 550 ml 1050 ml Balance -275 ml 190 ml -250 ml Exam Constitutional: alert, oriented, well developed Respiratory: clear to auscultation, normal air movement Cardiovascular: nl pulses, regular rate and rhythm Gastrointestinal: non-tender, soft Musculoskeletal: nl extremities to inspection Extremities: normal pulses, other (no edema, clubbing or cyanosis ) Neurological: UNDERWRITING INTERN II-XII intact, nl mental status, nl speech, nl strength Results Result Diagram: 05/10/16 1036 05/12/16 0530 Results 24 hrs Laboratory Tests Test 05/12/16 05:30 Sodium Level 140 Potassium Level 3.3 L Chloride Level 103 # Carbon Dioxide Level 24 Anion Gap 16 Blood Urea Nitrogen 17 # Creatinine 0.64 Glucose Level 121 Calcium Level 9.5 Medications Medications Current Medications Ondansetron HCl (Zofran Inj) 4 mg Q6H PRN IV NAUSEA AND/OR VOMITING Last administered on 05/09/16 08:57; Admin Dose 4 MG; Start 05/05/16 at 01:30 Acetaminophen (Tylenol Liquid) 650 mg Q6H PRN PO PAIN LEVEL 1-3 OR FEVER; Start 05/05/16 at 01:30 Pantoprazole (Protonix Iv) 40 mg DAILY@06 IV Last administered on 05/12/16 05: 16; Admin Dose 40 MG; Start 05/05/16 at 06:00 Enoxaparin Sodium (Lovenox) 40 mg DAILY SC Last administered on 05/12/16 08:46 ; Admin Dose 40 MG; Start 05/05/16 at 09:00 Olanzapine (Zyprexa) 15 mg HS PO Last administered on 05/11/16 20:56; Admin Dose 15 MG; Start 05/08/16 at 21:00 Haloperidol (Haldol) 5 mg Q12H PRN IV AGITATION; Start 05/11/16 at 13:30 TEJ SEQUEIRA May 12, 2016 11:02
--- NOTE | 2016-05-12 11:30 | PDOCDIS ---
Discharge Instructions CONDITION Patient Condition: Stable HOME CARE INSTRUCTIONS: Diet Instructions: Regular ACTIVITY: Activity Restrictions: No Restrictions FOLLOW UP/APPOINTMENTS Appointments follow up with psychiatry TEJ SEQUEIRA May 12, 2016 11:30
[2016-05-12 20:30] VITALS: BP 129/68; RESP 22
[2016-05-12] MEDS: OLANZAPINE 5 MG TAB PO SCH (20:47)
[2016-05-13 08:03] VITALS: BP 125/63; RESP 16
--- NOTE | 2016-05-13 14:07 | PN ---
Date/Time of Note Date/Time of Note DATE: 05/13/16 TIME: 13:55 Assessment/Plan VTE Prophylaxis VTE Prophylaxis Intervention: SCD's Lines/Catheters IV Catheter Type (from Nrsg): Saline Lock Urinary Cath still in place: No Assessment/Plan Assessment/Plan 20 yo male with: 1. Psychosis/Agitation with underlying Schizophrenia, non-compliance with antipsychotic medications and also Cocaine use. On RA, tolerating po and ambulating Continue Zyprexa qhs PET team eval pending for inpatient psych placement Patient is medically cleared for discharge to psychiatric facility as of 05/12 web services developer following 1:1 sitter for now 2. Cocaine Use: patient reports was to treat voices he was hearing.. 3. Rhabdomyolysis, resolved. BMP stable. Prophylaxis: Protonix for GI ppx and Ambulatory Disposition: 5150 per psych and stable from Medical standpoint to be discharged to inpatient psychiatric facility as of 05/12/16 Subjective 24 Hr Interval Summary Free Text/Dictation Patient doing well clinically and medically stable No complaints and ambulated in hallway x 3 at least without assistance Patient has been cleared medically for discharge to Psych facility as of 05/12 Exam/Review of Systems Vital Signs Vitals Vital Signs Date Time Temp Pulse Resp B/P Pulse Ox O2 Delivery O2 Flow Rate FiO2 05/13/16 08:03 98.1 82 16 125/63 98 05/11/16 12:30 Room Air 05/10/16 18:32 2.0 28 Intake and Output 05/12/16 05/12/16 05/13/16 15:00 23:00 07:00 Intake Total 100 ml 2000 ml 1020 ml Output Total 400 ml Balance 100 ml 1600 ml 1020 ml Exam Constitutional: alert, oriented, well developed Respiratory: clear to auscultation, normal air movement Cardiovascular: nl pulses, regular rate and rhythm Gastrointestinal: non-tender, soft Musculoskeletal: nl extremities to inspection, nl gait and stance Extremities: normal pulses, other (no edema, clubbing or cyanosis) Neurological: REIMBURSEMENT DIRECTOR II-XII intact, nl mental status, nl speech, nl strength Results Result Diagram: 05/10/16 1036 05/12/16 0530 Results 24 hrs Laboratory Tests Test 05/13/16 09:48 Lab Scanned Report REFERENCE LAB Medications Medications Current Medications Ondansetron HCl (Zofran Inj) 4 mg Q6H PRN IV NAUSEA AND/OR VOMITING Last administered on 05/09/16 08:57; Admin Dose 4 MG; Start 05/05/16 at 01:30 Acetaminophen (Tylenol Liquid) 650 mg Q6H PRN PO PAIN LEVEL 1-3 OR FEVER; Start 05/05/16 at 01:30 Olanzapine (Zyprexa) 15 mg HS PO Last administered on 05/12/16 20:47; Admin Dose 15 MG; Start 05/08/16 at 21:00 TEJ SEQUEIRA May 13, 2016 14:06
[2016-05-13 14:20] LABS: ADD SCAN DIFF NO
[2016-05-13 14:22] LABS: BASOPHILS % 0.4 % (0.0-2.0); HEMATOCRIT 43.9 % (42.0-52.0); HEMOGLOBIN 15.3 g/dl (14.0-18.0); LYMPHOCYTES # 1.8 10^3/ul (0.8-2.9); LYMPHOCYTES % 18.9 % (15.0-51.0); MEAN CORPUSCULAR HEMOGLOBIN 30.5 pg (29.0-33.0); MEAN CORPUSCULAR HGB CONC 34.9 g/dl (32.0-37.0); MEAN CORPUSCULAR VOLUME 87.6 fl (82.0-101.0); MEAN PLATELET VOLUME 10.8 fl (7.4-10.4); MONOCYTES % 11.2 % (0.0-11.0); NEUTROPHIL # 6.4 10^3/ul (1.6-7.5); NEUTROPHILS % 69.2 % (39.0-77.0); PLATELET COUNT 318 10^3/UL (140-415); RED BLOOD COUNT 5.01 10^6/ul (4.70-6.10); RED CELL DISTRIBUTION WIDTH 12.6 % (11.5-14.5); WHITE BLOOD COUNT 9.3 10^3/ul (4.8-10.8)
[2016-05-13 14:33] LABS: POTASSIUM 3.6 mmol/L (3.5-5.1)
[2016-05-13 14:35] LABS: CREATININE 0.86 mg/dl (0.61-1.24)
[2016-05-13 14:36] LABS: CALCIUM 9.2 mg/dl (8.4-10.2); PHOSPHORUS 4.3 mg/dl (2.5-4.9)
[2016-05-13 14:37] LABS: MAGNESIUM 2.1 mg/dl (1.7-2.5)
[2016-05-13 19:30] VITALS: BP 140/75; RESP 19
[2016-05-13] MEDS: OLANZAPINE 5 MG TAB PO SCH (20:54)
[2016-05-14 07:33] VITALS: BP 136/72; RESP 20
--- NOTE | 2016-05-14 13:36 | PN ---
Date/Time of Note Date/Time of Note DATE: 05/14/16 TIME: 13:31 Assessment/Plan VTE Prophylaxis VTE Prophylaxis Intervention: ambulation Lines/Catheters IV Catheter Type (from Nrs): Saline Lock Urinary Cath still in place: No Assessment/Plan Assessment/Plan 20 yo male with: 1. Psychosis/Agitation with underlying Schizophrenia, non-compliance with antipsychotic medications and also Cocaine use. On RA, tolerating po and ambulating in hallway independently with NO assistance at all, no walker Continue Zyprexa [facility] PET team eval pending today for inpatient psych placement Patient is medically cleared for discharge to psychiatric facility as of 05/12 rehabilitation services director following 1:1 sitter for now 2. Cocaine Use: patient reports was to treat voices he was hearing.. 3. Rhabdomyolysis, resolved. BMP stable. Prophylaxis: Protonix for GI ppx and Ambulatory Disposition: 5150 per psych and stable from Medical standpoint to be discharged to inpatient psychiatric facility as of 05/12/16 Subjective 24 Hr Interval Summary Free Text/Dictation Patient stable from medical standpoint to go to psych facility as of 05/12 Exam/Review of Systems Vital Signs Vitals Vital Signs Date Time Temp Pulse Resp B/P Pulse Ox O2 Delivery O2 Flow Rate FiO2 05/14/16 07:33 98.3 97 136/72 98 05/13/16 19:30 19 05/11/16 12:30 Room Air 05/10/16 18:32 2.0 28 Exam Constitutional: alert, oriented, well developed Respiratory: clear to auscultation, normal air movement Cardiovascular: nl pulses, regular rate and rhythm Gastrointestinal: non-tender, soft Musculoskeletal: nl extremities to inspection Extremities: normal pulses, other (no edema, clubbing or cyanosis ) Neurological: VIRTUAL ASSISTANT FOR ADVERTISERS II-XII intact, nl mental status, nl speech, nl strength Results Result Diagram: 05/13/16 1340 05/13/16 1340 Results 24 hrs Laboratory Tests Test 05/13/16 13:40 White Blood Count 9.3 # Red Blood Count 5.01 Hemoglobin 15.3 Hematocrit 43.9 Mean Corpuscular Volume 87.6 Mean Corpuscular Hemoglobin 30.5 Mean Corpuscular Hemoglobin Concent 34.9 Red Cell Distribution Width 12.6 Platelet Count 318 # Mean Platelet Volume 10.8 H Neutrophils % 69.2 Lymphocytes % 18.9 Monocytes % 11.2 H Eosinophils % 0.0 Basophils % 0.4 Nucleated Red Blood Cells % 0.0 Neutrophils # 6.4 Lymphocytes # 1.8 Monocytes # 1.0 H Eosinophils # 0.0 Basophils # 0.0 Nucleated Red Blood Cells # 0.0 Sodium Level 139 Potassium Level 3.6 Chloride Level 101 Carbon Dioxide Level 29 Anion Gap 13 Blood Urea Nitrogen 22 H Creatinine 0.86 Glucose Level 99 Calcium Level 9.2 Phosphorus Level 4.3 Magnesium Level 2.1 Medications Medications Current Medications Ondansetron HCl (Zofran Inj) 4 mg Q6H PRN IV NAUSEA AND/OR VOMITING Last administered on 05/09/16 08:57; Admin Dose 4 MG; Start 05/05/16 at 01:30 Acetaminophen (Tylenol Liquid) 650 mg Q6H PRN PO PAIN LEVEL 1-3 OR FEVER; Start 05/05/16 at 01:30 Olanzapine (Zyprexa) 15 mg HS PO Last administered on 05/13/16 20:54; Admin Dose 15 MG; Start 05/08/16 at 21:00 TEJ SEQUEIRA May 14, 2016 13:36
--- NOTE | 2016-05-14 18:21 | DS ---
DATE OF ADMISSION: 05/05/2016 DATE OF DISCHARGE: 05/14/2016 CONSULTANTS DURING THIS ADMISSION: Dr. Singh from Pulmonary Critical Care and multiple consultation s with Telepsychiatry. CHIEF COMPLAINT ON ADMISSION: Agitation. BRIEF HISTORY OF PRESENTING ILLNESS: This is a 20-year-old male with paranoid schizophrenia as unde rlying diagnosis, admitted with delirium, agitation and cocaine use. The patient was extremely agit ated, violent in the emergency department, prompting for the patient to get sedation and eventually intubated. HOSPITAL COURSE: The patient was intubated in the emergency department in an attempt to control him . Apparently during intubation he was vomiting. Therefore, there was a possibility of aspiration p neumonia. He was maintained on Zosyn. He was maintained on the ventilator. Every time his sedatio n was weaned down, the patient was extremely agitated, requiring for his sedation to be resumed. It took approximately 5 days for the patient's mental status to improve. This is likely secondary to his cocaine use, we are thinking at this point. The patient was eventually extubated. He was fairl y groggy at first but has been more and more alert, oriented since then. He has been maintained on Zyprexa 15 mg p.o. at bedtime. No other additional medication has been needed since extubation. He is ambulating on his own. He is thankful for the care he has received. He is compliant. After mu ltiple discussions with family, they have at this point pleaded for the patient to go to a psychiatr ic facility as he has a tendency to have outbursts at home and noncompliance with medications. Also there is a fear that he will continue using cocaine, although the patient at this point is voicing that he will not. He seems to have poor insight in his psychiatric disease. He has been evaluated by the PET team and will be transferred to an inpatient psychiatric facility. At the time of transf er, he is tolerating p.o., he is ambulating on his own, he is on room air. He is medically stable a s of 05/12/2016 for discharge to a psychiatric facility. DISPOSITION: Discharge to inpatient psych. DISCHARGE CONDITION: Stable medically. DISCHARGE ACTIVITY: Resume regular ambulation. FOLLOWUP: The patient will be followed at the psychiatry facility for titration of his medication. DISCHARGE DIAGNOSES: 1. Paranoid schizophrenia with psychosis. 2. Cocaine use. 3. Rhabdomyolysis, resolved. DISCHARGE MEDICATION: Zyprexa 15 mg p.o. daily. Dictated By: TEJ FITZGERALD/MARILYNN Conf#: [id number] DID#: [id number]
== END 2016-05-14 18:35 | disposition short-term general hospital (02) | DRG 917 ==
LOC: E/R 22:18 → ICU 05-05 01:27 → OBSVTOIN 05-05 13:13 → MS2 05-11 12:15
PROVIDERS: ADMIT Legal Medicine; ATTEND Legal Medicine
PROC: 5A1955Z Respiratory Ventilation, Greater than 96 Consecutive Hours (ICD-10-PCS; principal; 2016-05-05)
PROC: 0BH17EZ Insertion of Endotracheal Airway into Trachea, Via Natural or Artificial Opening (ICD-10-PCS; 2016-05-05)
DX: T40.5X1A Poisoning by cocaine, accidental (unintentional), initial encounter (principal); J96.00 Acute respiratory failure, unspecified whether with hypoxia or hypercapnia; J69.0 Pneumonitis due to inhalation of food and vomit; M62.82 Rhabdomyolysis; F20.0 Paranoid schizophrenia; R45.851 Suicidal ideations; F14.23 Cocaine dependence with withdrawal; R45.850 Homicidal ideations; R45.6 Violent behavior; R45.1 Restlessness and agitation; Y92.9 Unspecified place or not applicable; Z91.14 Patient's other noncompliance with medication regimen; R11.10 Vomiting, unspecified; Z78.1 Physical restraint status
CPT/HCPCS: 31500; 36415; 36600; 70450; 71010; 74000; 80048; 80053; 80306; 80307; 81003; 82085; 82550; 82553; 82803; 83735; 84100; 84484; 85025; 87081; 92526; 92610; 94002; 94003; 94640; 94770; 96361; 96374; 96376; 97116; 97162; C9113; G0378; J0330; J1630; J1650; J2060; J2405; J2543; J3010; J3370; J3480; J7030; J7042

== ENCOUNTER 2017-02-06 18:54 | Emergency (ER) | payer SELFPAY ==
[~2017-02-06] VITALS: Ht 170.2 cm; Wt 70.5 kg
[~2017-02-06 18:54] MED LIST changes: -FLUO20CA38; -METH36TA6; +OLAN15TA3 PO
[2017-02-06 19:00] VITALS: Ht 170.2 cm; Wt 70.5 kg
== END 2017-02-06 19:35 | disposition left against medical advice (07) ==
LOC: FTE 18:54
DX: Z53.21 Procedure and treatment not carried out due to patient leaving prior to being seen by health care provider (principal)

== ENCOUNTER 2018-05-08 23:50 | Emergency (ER) | payer SELFPAY ==
[~2018-05-08] VITALS: Ht 172.7 cm; Wt 66.0 kg
[2018-05-08 23:56] VITALS: BP 146/75; PULSE 99; RESP 18; Ht 172.7 cm; Wt 66.0 kg
== END 2018-05-09 02:06 | disposition left against medical advice (07) ==
LOC: FTE 23:50
DX: Z53.21 Procedure and treatment not carried out due to patient leaving prior to being seen by health care provider (principal)